=== PATIENT | female | born 1985 | race Two or more races ===

== ENCOUNTER 2017-11-13 21:30 | Inpatient (IN) | payer BC, MEDICAID ==
[2017-11-13] MEDS ORDERED: Ondansetron 4 MG/2 ML SDV IVPUSH ONE (22:19)
[2017-11-13] MEDS ORDERED: Sodium Chloride 0.9% 1,000 ML IV SCH (22:30)
[2017-11-13] MEDS ORDERED: HYDROmorphone 1 MG/ML Syringe IVPUSH ONE (23:24)
--- NOTE | 2017-11-14 00:23 | EDM.PDOC ---
ED HPI GENERAL MEDICAL PROBLEM - General Chief Complaint: Gastrointestinal Problem Stated Complaint: VOMITING/ABD PAIN Time Seen by Provider: 11/13/17 21:45 Source of Information: Reports: Patient History Limitations: Reports: No Limitations - History of Present Illness INITIAL COMMENTS - FREE TEXT/NARRATIVE: Abdominal pain this is a 32-year-old female presents emergency room with her friend, reports sudden onset of intense pain and nausea in her epigastric and mid quadrant of abdomen starting at 2 PM today. This occurred after she ate a mini topical bowl which contain rice, beans, chicken, cheese and salsa. Took 2 Zofran 4 mg ODT but vomited them up immediately after taking them. History of gastric bypass on 03/10/2014, reports no complications since gastric bypass. History of ulcer; takes Prilosec and carafate Onset: Sudden Onset Date: 11/13/17 Onset Time: 14:00 Duration: Constant, Getting Worse Location: Reports: Abdomen Quality: Reports: Sharp, Stabbing, Throbbing Severity: Severe Improves with: Reports: None Worsens with: Reports: Eating Associated Symptoms: Reports: Loss of Appetite, Nausea/Vomiting Treatments CORN HUSK BALER: Reports: Other (see below) Other Treatments CORN HUSK BALER: none Mid Abdomen Pain Score (Numeric/FACES): 8 - Related Data Allergies Allergy/AdvReac Type Severity Reaction Status Date / Time walnut Allergy Severe Anaphylactic Verified 11/13/17 22:10 Shock azithromycin Allergy Rash Verified 11/13/17 22:10 iodine Allergy Hives Verified 11/13/17 22:10 morphine AdvReac Headache Verified 11/13/17 22:10 Home Meds: Home Meds Levothyroxine Sodium [Synthroid] 88 mcg PO DAILY 03/07/14 [History] Ascorbic Acid [Vitamin C] 500 mg PO DAILY 09/18/15 [History] Calcium Citrate 500 mg PO DAILY 09/18/15 [History] Cholecalciferol (Vitamin D3) [Vitamin D3] 2,000 units PO DAILY 09/18/15 [History ] Cranberry Extract [Cranberry] 1,000 mg PO .ALICE OTHER DAY 09/18/15 [History] Cyanocobalamin (Vitamin B-12) [Vitamin B-12] 1,000 mcg IM .QOW 09/18/15 [History ] Cyanocobalamin (Vitamin B-12) [Vitamin B-12] 5,000 mcg SL BID 09/18/15 [History] Ferrous Fumarate [Ferrocite] 324 mg PO DAILY 09/18/15 [History] Folic Acid 800 mcg PO DAILY 09/18/15 [History] Multivitamin [Flintstones] 1 tab PO BID 09/18/15 [History] Omeprazole [Prilosec] 40 mg PO DAILY PRN 09/18/15 [History] Papaya [Papaya Enzyme] 1 tab PO DAILY PRN 09/18/15 [History] Sennosides [Senna] 8.6 mg PO BEDTIME PRN 09/18/15 [History] Thiamine [Vitamin B-1] 100 mg PO DAILY 09/18/15 [History] Pantoprazole Sodium [Protonix] 40 mg PO DAILY 09/21/15 [History] buPROPion HCl [Bupropion HCl Sr] 100 mg PO BID 07/03/16 [History] Acetaminophen/HYDROcodone [[place] 325-5 MG] 1 - 2 tab PO Q4H PRN #50 tablet 07/06 [Rx] Past Medical History Gastrointestinal History: Reports: GERD Other Gastrointestinal History: Ulcerative cholitis Genitourinary History: Reports: UTI, Recurrent ASSOCIATE FINANCIAL REPRESENTATIVE History: Reports: Polycystic Ovaries, , Spontaneous Musculoskeletal History: Reports: Back Pain, Chronic, Other (See Below) Other Musculoskeletal History: slipped disc Neurological History: Reports: Migraines Psychiatric History: Reports: Anxiety, Depression, Panic Attack Endocrine/Metabolic History: Reports: Hypothyroidism Hematologic History: Reports: B12 Deficiency, Folic Acid Immunologic History: Reports: None Oncologic (Cancer) History: Reports: Cervix, Other (See Below) Other Oncologic History: Leep Dermatologic History: Reports: None - Infectious Disease History Infectious Disease History: Reports: Chicken Pox - Past Surgical History Head Surgeries/Procedures: Reports: None GI Surgical History: Reports: Bariatric Procedure, Cholecystectomy Neurological Surgical History: Reports: None Musculoskeletal Surgical History: Reports: None Social & Family History - Family History HEENT: Reports: None Cardiac: Reports: Heart Murmur Respiratory: Reports: Asthma GI: Reports: Irritable Bowel Syndrome, Other (See Below) Other GI Family History: ulcerative colitis : Reports: Other (See Below) Other Family History: uterine cysts OBGYN: Reports: Fibroids Musculoskeletal: Reports: Arthritis, Fibromyalgia Neurological: Reports: None Psychiatric: Reports: Psych Hospitalization(s), Psychosis Endocrine/Metabolic: Reports: Diabetes, type II Hematologic: Reports: None Immunologic: Reports: None Dermatologic: Reports: None Oncologic: Reports: None - Tobacco Use Smoking Status *Q: Never Smoker Years of Tobacco use: 10 Packs/Tins Daily: 0 Used Tobacco, but Quit: Yes Month/Year Tobacco Last Used: 03/16/16 Second Hand Smoke Exposure: No - Caffeine Use Caffeine Use: Reports: Coffee, Tea - Alcohol Use Days Per Week of Alcohol Use: 2 Number of Drinks Per Day: 1 Total Drinks Per Week: 2 - Recreational Drug Use Recreational Drug Use: No Drug Use in Last 12 Months: No Recreational Drug Type: Reports: Methamphetamine - Living Situation & Occupation Living situation: Reports: Single (Has 3 children lives in [facility] ) ED ROS GENERAL - Review of Systems Review Of Systems: See Below Constitutional: Reports: Malaise, Decreased Appetite HEENT: Reports: No Symptoms Respiratory: Reports: No Symptoms Cardiovascular: Reports: No Symptoms Endocrine: Reports: No Symptoms GI/Abdominal: Reports: Abdominal Pain, Nausea, Vomiting, Other (History of gastric bypass 2013) : Reports: No Symptoms Musculoskeletal: Reports: Back Pain (Pain between shoulders and upper back) Skin: Reports: No Symptoms Neurological: Reports: No Symptoms Psychiatric: Reports: No Symptoms Hematologic/Lymphatic: Reports: No Symptoms Immunologic: Reports: No Symptoms ED EXAM, GI/ABD - Physical Exam Exam: See Below Exam Limited By: No Limitations General Appearance: Moderate Distress (Laying on her side not moving, tearful with abdominal exam.) Eyes: Bilateral: Normal Appearance (Dark circles under eyes) Ears: Normal External Exam, Normal Canal, Hearing Grossly Normal, Normal TMs Nose: Normal Inspection, Normal Mucosa, No Blood Throat/Mouth: Normal Inspection, Normal Lips, Normal Teeth, Normal Gums, Normal Oropharynx, Normal Voice, No Airway Compromise Head: Atraumatic, Normocephalic Neck: Normal Inspection, Supple, Non-Tender, Full Range of Motion Respiratory/Chest: No Respiratory Distress, Lungs Clear, Normal Breath Sounds, No Accessory Muscle Use, Chest Non-Tender Cardiovascular: Regular Rate, Rhythm, No Murmur GI/Abdominal Exam: Tender (Very tender to light palpation in epigastric and mid abdominal quadrant, tearful), Abnormal Bowel Sounds (Hypoactive) (Female) Exam: Deferred Rectal (Female) Exam: Deferred Back Exam: Normal Inspection, Full Range of Motion, NT Extremities: Normal Inspection, Normal Range of Motion, Non-Tender, Normal Capillary Refill, No Pedal Edema Neurological: No Motor/Sensory Deficits Psychiatric: Tearful Skin Exam: Warm, Dry, Intact, Normal Color, No Rash Lymphatic: No Adenopathy Course - Vital Signs Last Recorded V/S: Last Vital Signs Temp 37.4 C 11/13/17 22:04 Pulse 78 11/13/17 22:04 Resp 18 11/13/17 22:04 BP 135/72 11/13/17 22:04 Pulse Ox 96 11/13/17 22:04 - Orders/Labs/Meds Orders: Active Orders 24 hr Category Date Time Status Patient Status Manage Transfer [TRANSFER] Routine ADT 11/13/17 23:49 Active Abdomen Pelvis wo Cont [CT] Stat Exams 11/13/17 22:21 Taken UA W/MICROSCOPIC [URIN] Urgent Lab 11/13/17 22:20 Ordered Sodium Chloride 0.9% [Normal Saline] 1,000 ml Med 11/13/17 22:30 Active IV ASDIRECTED Resuscitation Status Routine Resus Stat 11/13/17 23:50 Ordered Medication Orders Sodium Chloride (Normal Saline) 1,000 mls @ 300 mls/hr IV ASDIRECTED JULITO Last Admin: 11/13/17 22:39 Dose: 300 mls/hr Labs: Laboratory Tests 11/13/17 11/13/17 Range/Units 22:20 22:20 WBC 9.8 (4.5-11.0) K/uL RBC 4.44 (3.30-5.50) M/uL Hgb 14.1 D (12.0-15.0) g/dL Hct 41.6 (36.0-48.0) % MCV 94 (80-98) fL MCH 32 H (27-31) pg MCHC 34 (32-36) % Plt Count 321 (150-400) K/uL Neut % (Auto) 88 H (36-66) % Lymph % (Auto) 8 L (24-44) % [place] % (Auto) 3 (2-6) % Eos % (Auto) 1 L (2-4) % Baso % (Auto) 0 (0-1) % Sodium 143 (140-148) mmol/L Potassium 4.0 (3.6-5.2) mmol/L Chloride 106 (100-108) mmol/L Carbon Dioxide 26 (21-32) mmol/L Anion Gap 11.0 (5.0-14.0) mmol/L BUN 8 D (7-18) mg/dL Creatinine 0.7 (0.6-1.0) mg/dL Est Cr Clr Drug Dosing 89.56 mL/min Estimated GFR (MDRD) > 60 (>60) Glucose 134 H (74-106) mg/dL Calcium 9.2 D (8.5-10.1) mg/dL Total Bilirubin 0.4 (0.2-1.0) mg/dL AST 23 (15-37) U/L ALT 29 (12-78) U/L Alkaline Phosphatase 62 (46-116) U/L Total Protein 7.4 (6.4-8.2) g/dL Albumin 4.2 (3.4-5.0) g/dL Globulin 3.2 (2.3-3.5) g/dL Albumin/Globulin Ratio 1.3 (1.2-2.2) Amylase 47 (25-115) U/L Lipase 103 (73-393) U/L Meds: Medications Generic Name Dose Route Start Last Admin Trade Name Freq PRN Reason Stop Dose Admin Sodium Chloride 1,000 mls @ 300 mls/hr 11/13/17 22:30 11/13/17 22:39 Normal Saline IV 300 mls/hr ASDIRECTED JULITO Administration Discontinued Medications Generic Name Dose Route Start Last Admin Trade Name Freq PRN Reason Stop Dose Admin Hydromorphone HCl 1 mg 11/13/17 23:24 11/14/17 00:00 Dilaudid IVPUSH 11/13/17 23:25 1 mg ONETIME ONE Administration Ondansetron HCl 4 mg 11/13/17 22:19 11/13/17 22:41 Zofran IVPUSH 11/13/17 22:20 4 mg ONETIME ONE Administration - Re-Assessments/Exams Free Text/Narrative Re-Assessment/Exam: 11/13/2017 While in the emergency room given IV fluids, Zofran 4 mg IV, and Dilaudid 1 mg IV Labs: WBC 9.8, hemoglobin 14 1, heart hematocrit 32, platelets 321, seg 88 and 0 lymphs, bands 8, chemistry unremarkable, LFTs normal, lipase 103 Imaging : CT scan abdomen pelvis without contrast: Impression suspected small bowel obstruction with alimentary limb.. No convincing evidence for internal hernia. Adhesive disease or anastomotic stricture are possible causes for obstruction. 6 x 4 cm right adnexal cyst without evidence of rupture. This is almost certain to be benign. However because of his large size follow-up ultrasound evaluation is recommended. Discussed the above findings with Dr. Rudolph Crump, surgeon, will admit to hospital for further care and evaluation. Reviewed recommendations with patient and her friend agree with plan of care Departure - Departure Time of Disposition: 00:33 Disposition: Admitted As Inpatient 64 Condition: Good Clinical Impression: Small bowel obstruction - Discharge Information Referrals: Madan Castellano MD [Primary Care Provider] - - Problem List & Annotations (1) Small bowel obstruction SNOMED Code(s): 918708524 Code(s): K56.609 - UNSP INTESTNL OBST, UNSP TO PARTIAL VERSUS COMPLETE OBST Status: Acute Priority: High Current Visit: Yes - Problem List Review Problem List Initiated/Reviewed/Updated: Yes - My Orders Last 24 Hours: My Active Orders 11/13/17 22:20 UA W/MICROSCOPIC [URIN] Urgent 11/13/17 22:21 Abdomen Pelvis wo Cont [CT] Stat 11/13/17 22:30 Sodium Chloride 0.9% [Normal Saline] 1,000 ml IV ASDIRECTED 11/13/17 23:49 Patient Status Manage Transfer [TRANSFER] Routine 11/13/17 23:50 Resuscitation Status Routine - Assessment/Plan Last 24 Hours: My Active Orders 11/13/17 22:20 UA W/MICROSCOPIC [URIN] Urgent 11/13/17 22:21 Abdomen Pelvis wo Cont [CT] Stat 11/13/17 22:30 Sodium Chloride 0.9% [Normal Saline] 1,000 ml IV ASDIRECTED 11/13/17 23:49 Patient Status Manage Transfer [TRANSFER] Routine 11/13/17 23:50 Resuscitation Status Routine Plan: Admit to [facility]
--- NOTE | 2017-11-14 00:37 | PCM.HP ---
H&P History of Present Illness - General Date of Service: 11/13/17 Admit Problem/Dx: Admission Diagnosis/Problem Admission Diagnosis/Problem Small bowel obstruction Source of Information: Patient History Limitations: Reports: No Limitations - History of Present Illness Initial Comments - Free Text/Narative: Abdominal pain this is a 32-year-old female presents emergency room with her friend, reports sudden onset of intense pain and nausea in her epigastric and mid quadrant of abdomen starting at 2 PM today. This occurred after she ate a mini topical bowl which contain rice, beans, chicken, cheese and salsa. Took 2 Zofran 4 mg ODT but vomited them up immediately after taking them. History of gastric bypass on 03/10/2014, reports no complications since gastric bypass. History of ulcer; takes Prilosec and carafate Mid Abdomen Pain Score (Numeric/FACES): 8 - Related Data Allergies/Adverse Reactions: Allergies Allergy/AdvReac Type Severity Reaction Status Date / Time walnut Allergy Severe Anaphylactic Verified 11/13/17 22:10 Shock azithromycin Allergy Rash Verified 11/13/17 22:10 iodine Allergy Hives Verified 11/13/17 22:10 morphine AdvReac Headache Verified 11/13/17 22:10 Home Medications: Home Meds Levothyroxine Sodium [Synthroid] 88 mcg PO DAILY 03/07/14 [History] Ascorbic Acid [Vitamin C] 500 mg PO DAILY 09/18/15 [History] Calcium Citrate 500 mg PO DAILY 09/18/15 [History] Cholecalciferol (Vitamin D3) [Vitamin D3] 2,000 units PO DAILY 09/18/15 [History ] Cranberry Extract [Cranberry] 1,000 mg PO .ALICE OTHER DAY 09/18/15 [History] Cyanocobalamin (Vitamin B-12) [Vitamin B-12] 1,000 mcg IM .QOW 09/18/15 [History ] Cyanocobalamin (Vitamin B-12) [Vitamin B-12] 5,000 mcg SL BID 09/18/15 [History] Ferrous Fumarate [Ferrocite] 324 mg PO DAILY 09/18/15 [History] Folic Acid 800 mcg PO DAILY 09/18/15 [History] Multivitamin [Flintstones] 1 tab PO BID 09/18/15 [History] Omeprazole [Prilosec] 40 mg PO DAILY PRN 09/18/15 [History] Papaya [Papaya Enzyme] 1 tab PO DAILY PRN 09/18/15 [History] Sennosides [Senna] 8.6 mg PO BEDTIME PRN 09/18/15 [History] Thiamine [Vitamin B-1] 100 mg PO DAILY 09/18/15 [History] Pantoprazole Sodium [Protonix] 40 mg PO DAILY 09/21/15 [History] buPROPion HCl [Bupropion HCl Sr] 100 mg PO BID 07/03/16 [History] Acetaminophen/HYDROcodone [[place] 325-5 MG] 1 - 2 tab PO Q4H PRN #50 tablet 07/06 [Rx] Past Medical History Gastrointestinal History: Reports: GERD Other Gastrointestinal History: Ulcerative cholitis Genitourinary History: Reports: UTI, Recurrent 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: Polycystic Ovaries, , Spontaneous Musculoskeletal History: Reports: Back Pain, Chronic, Other (See Below) Other Musculoskeletal History: slipped disc Neurological History: Reports: Migraines Psychiatric History: Reports: Anxiety, Depression, Panic Attack Endocrine/Metabolic History: Reports: Hypothyroidism Hematologic History: Reports: B12 Deficiency, Folic Acid Immunologic History: Reports: None Oncologic (Cancer) History: Reports: Cervix, Other (See Below) Other Oncologic History: Leep Dermatologic History: Reports: None - Infectious Disease History Infectious Disease History: Reports: Chicken Pox - Past Surgical History Head Surgeries/Procedures: Reports: None GI Surgical History: Reports: Bariatric Procedure, Cholecystectomy Neurological Surgical History: Reports: None Musculoskeletal Surgical History: Reports: None Social & Family History - Family History HEENT: Reports: None Cardiac: Reports: Heart Murmur Respiratory: Reports: Asthma GI: Reports: Irritable Bowel Syndrome, Other (See Below) Other GI Family History: ulcerative colitis : Reports: Other (See Below) Other Family History: uterine cysts OBGYN: Reports: Fibroids Musculoskeletal: Reports: Arthritis, Fibromyalgia Neurological: Reports: None Psychiatric: Reports: Psych Hospitalization(s), Psychosis Endocrine/Metabolic: Reports: Diabetes, type II Hematologic: Reports: None Immunologic: Reports: None Dermatologic: Reports: None Oncologic: Reports: None - Tobacco Use Smoking Status *Q: Never Smoker Years of Tobacco use: 10 Packs/Tins Daily: 0 Used Tobacco, but Quit: Yes Month/Year Tobacco Last Used: 03/16/16 Second Hand Smoke Exposure: No - Caffeine Use Caffeine Use: Reports: Coffee, Tea - Alcohol Use Days Per Week of Alcohol Use: 2 Number of Drinks Per Day: 1 Total Drinks Per Week: 2 - Recreational Drug Use Recreational Drug Use: No Drug Use in Last 12 Months: No Recreational Drug Type: Reports: Methamphetamine - Living Situation & Occupation Living situation: Reports: Single (Has 3 children lives in [facility] ) H&P Review of Systems - Review of Systems: Review Of Systems: See Below General: Reports: Decreased Appetite, Other (Nausea vomiting and abdominal pain) HEENT: Reports: No Symptoms Pulmonary: Reports: No Symptoms Cardiovascular: Reports: No Symptoms Gastrointestinal: Reports: Abdominal Pain, Nausea, Vomiting Genitourinary: Reports: No Symptoms Musculoskeletal: Reports: Back Pain Skin: Reports: No Symptoms Psychiatric: Reports: No Symptoms Neurological: Reports: No Symptoms Hematologic/Lymphatic: Reports: No Symptoms Immunologic: Reports: No Symptoms Exam - Exam Exam: See Below - Vital Signs Vital Signs: Last Vital Signs Temp 37.4 C 11/13/17 22:04 Pulse 78 11/13/17 22:04 Resp 18 11/13/17 22:04 BP 135/72 11/13/17 22:04 Pulse Ox 96 11/13/17 22:04 Weight: 62.596 kg - Exam General: Alert, Oriented, Mild Distress (Pain control with Dilaudid and Zofran) HEENT: PERRLA, Conjunctiva Clear, EOMI, Mucosa Moist & [place], Nares Patent, Normal Nasal Septum, Posterior Pharynx Clear, Pupils Equal, Pupils Reactive, TMs Clear Neck: Supple, Trachea Midline Lungs: Clear to Auscultation, Normal Respiratory Effort Cardiovascular: Regular Rate, Regular Rhythm, Normal S1, Normal S2 GI/Abdominal Exam: Tender (Tenderness noted to light palpation epigastric and mid abdominal area.), Abnormal Bowel Sounds (Hypoactive to absent bowel sounds noted) (Female) Exam: Deferred Rectal (Female) Exam: Deferred Back Exam: Normal Inspection, Full Range of Motion Extremities: Normal Inspection, Normal Range of Motion, No Pedal Edema, Normal Capillary Refill Skin: Warm, Dry, Intact Neurological: Reflexes Equal Bilateral, Strength Equal Bilateral Neuro Extensive - Mental Status: Alert, Oriented x3, Normal Mood/Affect, Normal Cognition Neuro Extensive - Motor, Sensory, Reflexes: CN II-XII Intact, Normal Gait Psychiatric: Alert, Normal Affect, Normal Mood, Other (Tearful) - Patient Data Lab Results Last 24 hrs: Laboratory Results - last 24 hr 11/13/17 11/13/17 Range/Units 22:20 22:20 WBC 9.8 (4.5-11.0) K/uL RBC 4.44 (3.30-5.50) M/uL Hgb 14.1 D (12.0-15.0) g/dL Hct 41.6 (36.0-48.0) % MCV 94 (80-98) fL MCH 32 H (27-31) pg MCHC 34 (32-36) % Plt Count 321 (150-400) K/uL Neut % (Auto) 88 H (36-66) % Lymph % (Auto) 8 L (24-44) % [place] % (Auto) 3 (2-6) % Eos % (Auto) 1 L (2-4) % Baso % (Auto) 0 (0-1) % Sodium 143 (140-148) mmol/L Potassium 4.0 (3.6-5.2) mmol/L Chloride 106 (100-108) mmol/L Carbon Dioxide 26 (21-32) mmol/L Anion Gap 11.0 (5.0-14.0) mmol/L BUN 8 D (7-18) mg/dL Creatinine 0.7 (0.6-1.0) mg/dL Est Cr Clr Drug Dosing 89.56 mL/min Estimated GFR (MDRD) > 60 (>60) Glucose 134 H (74-106) mg/dL Calcium 9.2 D (8.5-10.1) mg/dL Total Bilirubin 0.4 (0.2-1.0) mg/dL AST 23 (15-37) U/L ALT 29 (12-78) U/L Alkaline Phosphatase 62 (46-116) U/L Total Protein 7.4 (6.4-8.2) g/dL Albumin 4.2 (3.4-5.0) g/dL Globulin 3.2 (2.3-3.5) g/dL Albumin/Globulin Ratio 1.3 (1.2-2.2) Amylase 47 (25-115) U/L Lipase 103 (73-393) U/L Result Diagrams: 11/13/17 22:20 11/13/17 22:20 - Problem List (1) Small bowel obstruction SNOMED Code(s): 364855595 ICD Code: K56.609 - UNSP INTESTNL OBST, UNSP TO PARTIAL VERSUS COMPLETE OBST Status: Acute Priority: High Current Visit: Yes (2) Ovarian cyst SNOMED Code(s): 73216863 ICD Code: N83.209 - UNSPECIFIED OVARIAN CYST, UNSPECIFIED SIDE Status: Acute Current Visit: Yes Qualifiers: Laterality: right Qualified Code(s): N83.201 - Unspecified ovarian cyst, right side Problem List Initiated/Reviewed/Updated: Yes Orders Last 24hrs: Active Orders 24 hr Category Date Time Status Patient Status Manage Transfer [TRANSFER] Routine ADT 11/13/17 23:49 Active Abdomen Pelvis wo Cont [CT] Stat Exams 11/13/17 22:21 Taken HCG QUALITATIVE,URINE [URCHEM] Stat Lab 11/14/17 00:28 Ordered UA W/MICROSCOPIC [URIN] Urgent Lab 11/13/17 22:20 Ordered Sodium Chloride 0.9% [Normal Saline] 1,000 ml Med 11/13/17 22:30 Active IV ASDIRECTED Resuscitation Status Routine Resus Stat 11/13/17 23:50 Ordered Medication Orders Sodium Chloride (Normal Saline) 1,000 mls @ 300 mls/hr IV ASDIRECTED JULITO Last Admin: 11/13/17 22:39 Dose: 300 mls/hr Assessment/Plan Comment:: Assessment: Abdominal pain this is a 32-year-old female presents emergency room with her friend, reports sudden onset of intense pain and nausea in her epigastric and mid quadrant of abdomen starting at 2 PM today. This occurred after she ate a mini topical bowl which contain rice, beans, chicken, cheese and salsa. Took 2 Zofran 4 mg ODT but vomited them up immediately after taking them. History of gastric bypass on 03/10/2014, reports no complications since gastric bypass. History of ulcer; takes Prilosec and carafate While in the emergency room given IV fluids, Zofran 4 mg IV, and Dilaudid 1 mg IV Labs: WBC 9.8, hemoglobin 14 1, heart hematocrit 32, platelets 321, seg 88 and 0 lymphs, bands 8, chemistry unremarkable, LFTs normal, lipase 103 Imaging : CT scan abdomen pelvis without contrast: Impression: suspected small bowel obstruction with alimentary limb.. No convincing evidence for internal hernia. Adhesive disease or anastomotic stricture are possible causes for obstruction. 6 x 4 cm right adnexal cyst without evidence of rupture. This is almost certain to be benign. However because of his large size follow-up ultrasound evaluation is recommended. Discussed the above findings with Dr. Rudolph Crump, surgeon, will admit to hospital for further care and evaluation. Reviewed recommendations with patient and her friend agree with plan of care Small bowel obstruction -Clear liquids till 2 AM then nothing by mouth -IV hydration, normal saline at 125 per hour -HR DIRECTOR Dilaudid pump for pain control -Referral for surgery -Dr. Crump surgeon consulted 6 x 4 cm right adnexal cyst -Advise patient to follow-up with her primary care provider for repeat ultrasound. -Stick immediate attention for increased pain, fever, chills, or any concerns. MAINTENANCE ISSUES -DVT prophylaxis; SCD -GI prophylaxis; IV Protonix 40 mg every 24 hours -Webber catheter; not required -Nutrition; clear liquids till 2 AM then nothing by mouth -Nicotine dependence; not required -Surgery consult CODE STATUS- Full code ADMISSION STATUS-patient will be admitted to inpatient status, expect at least a 2 night hospital stay for evaluation and management of problems as outlined above. At the time of this admission I do not reasonably expected evaluation and management of this problem will require more than a 96 hour hospital stay. DISPOSITION-anticipate discharge to home after the hospital stay. PRIMARY CARE PROVIDER-Dr. Madan Abraham
[2017-11-14] MEDS ORDERED: Albuterol 0.083% 2.5 MG/3 ML Neb Soln NEB PRN (01:05)
[2017-11-14] MEDS ORDERED: HYDROmorphone/Normal Saline 15 MG/30 ML PCA IV PRN (01:05)
[2017-11-14] MEDS ORDERED: LORazepam 2 MG/ML SDV IV PRN ×2 (01:05→14:32)
[2017-11-14] MEDS ORDERED: Naloxone 0.4 MG/ML SDV IVPUSH PRN (01:05)
[2017-11-14] MEDS: Lactated Ringers 1,000 ML IV SCH ×2 (01:26→09:06)
[2017-11-14] MEDS ORDERED: Pantoprazole 40 MG Vial IVPUSH SCH (01:30)
[2017-11-14] MEDS: Levothyroxine 88 MCG Tab PO SCH (07:42)
--- NOTE | 2017-11-14 07:46 | PCM.CONS ---
<Sulema Hebert J - Last Filed: 11/15/17 06:23> H&P History of Present Illness - General Admit Problem/Dx: Admission Diagnosis/Problem Admission Diagnosis/Problem Small bowel obstruction - Related Data Allergies/Adverse Reactions: Allergies Allergy/AdvReac Type Severity Reaction Status Date / Time walnut Allergy Severe Anaphylactic Verified 11/13/17 22:10 Shock azithromycin Allergy Rash Verified 11/13/17 22:10 iodine Allergy Hives Verified 11/13/17 22:10 morphine AdvReac Headache Verified 11/13/17 22:10 Home Medications: Home Meds Levothyroxine Sodium [Synthroid] 88 mcg PO DAILY 03/07/14 [History] Ascorbic Acid [Vitamin C] 500 mg PO DAILY 09/18/15 [History] Calcium Citrate 500 mg PO DAILY 09/18/15 [History] Cholecalciferol (Vitamin D3) [Vitamin D3] 2,000 units PO DAILY 09/18/15 [History ] Cranberry Extract [Cranberry] 1,000 mg PO .ALICE OTHER DAY 09/18/15 [History] Cyanocobalamin (Vitamin B-12) [Vitamin B-12] 1,000 mcg IM .QOW 09/18/15 [History ] Cyanocobalamin (Vitamin B-12) [Vitamin B-12] 5,000 mcg SL BID 09/18/15 [History] Ferrous Fumarate [Ferrocite] 324 mg PO DAILY 09/18/15 [History] Folic Acid 800 mcg PO DAILY 09/18/15 [History] Multivitamin [Flintstones] 1 tab PO BID 09/18/15 [History] Omeprazole [Prilosec] 40 mg PO DAILY PRN 09/18/15 [History] Papaya [Papaya Enzyme] 1 tab PO DAILY PRN 09/18/15 [History] Sennosides [Senna] 8.6 mg PO BEDTIME PRN 09/18/15 [History] Thiamine [Vitamin B-1] 100 mg PO DAILY 09/18/15 [History] Pantoprazole Sodium [Protonix] 40 mg PO DAILY 09/21/15 [History] buPROPion HCl [Bupropion HCl Sr] 100 mg PO BID 07/03/16 [History] Acetaminophen/HYDROcodone [[place] 325-5 MG] 1 - 2 tab PO Q4H PRN #50 tablet 07/06 [Rx] Exam - Exam Exam: See Below - Vital Signs Vital Signs: Last Vital Signs Temp 98.4 F 11/14/17 13:40 Pulse 75 11/14/17 13:40 Resp 14 11/14/17 13:40 BP 114/66 11/14/17 13:40 Pulse Ox 100 11/14/17 13:40 - Patient Data Lab Results Last 24 hrs: Laboratory Results - last 24 hr 11/13/17 11/13/17 11/14/17 Range/Units 22:20 22:20 00:28 WBC 9.8 (4.5-11.0) K/uL RBC 4.44 (3.30-5.50) M/uL Hgb 14.1 D (12.0-15.0) g/dL Hct 41.6 (36.0-48.0) % MCV 94 (80-98) fL MCH 32 H (27-31) pg MCHC 34 (32-36) % Plt Count 321 (150-400) K/uL Neut % (Auto) 88 H (36-66) % Lymph % (Auto) 8 L (24-44) % [place] % (Auto) 3 (2-6) % Eos % (Auto) 1 L (2-4) % Baso % (Auto) 0 (0-1) % Sodium 143 (140-148) mmol/L Potassium 4.0 (3.6-5.2) mmol/L Chloride 106 (100-108) mmol/L Carbon Dioxide 26 (21-32) mmol/L Anion Gap 11.0 (5.0-14.0) mmol/L BUN 8 D (7-18) mg/dL Creatinine 0.7 (0.6-1.0) mg/dL Est Cr Clr Drug Dosing 89.56 mL/min Estimated GFR (MDRD) > 60 (>60) Glucose 134 H (74-106) mg/dL Calcium 9.2 D (8.5-10.1) mg/dL Ferritin (8-388) ng/ml Total Bilirubin 0.4 (0.2-1.0) mg/dL AST 23 (15-37) U/L ALT 29 (12-78) U/L Alkaline Phosphatase 62 (46-116) U/L Total Protein 7.4 (6.4-8.2) g/dL Albumin 4.2 (3.4-5.0) g/dL Globulin 3.2 (2.3-3.5) g/dL Albumin/Globulin Ratio 1.3 (1.2-2.2) Amylase 47 (25-115) U/L Lipase 103 (73-393) U/L Vitamin B12 (193-986) pg/ml Vitamin D 25-Hydroxy (30-100) ng/mL Folate (8.6-58.9) ng/ml Urine Color Urine Appearance Urine pH (4.5-8.0) Ur Specific Mason (1.008-1.030) Urine Protein (NEGATIVE) mg/dL Urine Glucose (UA) (NEGATIVE) mg/dL Urine Ketones (NEGATIVE) mg/dL Urine Occult Blood (NEGATIVE) Urine Nitrite (NEGATIVE) Urine Bilirubin (NEGATIVE) Urine Urobilinogen (NORMAL) mg/dL Ur Leukocyte Esterase (NEGATIVE) Urine RBC (0-5) Urine WBC (0-5) Ur Epithelial Cells Amorphous Sediment Urine Bacteria Urine Mucus Urine HCG, Qual Negative 11/14/17 11/14/17 11/14/17 Range/Units 01:20 05:00 05:00 WBC 8.9 (4.5-11.0) K/uL RBC 4.00 (3.30-5.50) M/uL Hgb 12.9 (12.0-15.0) g/dL Hct 38.1 (36.0-48.0) % MCV 95 (80-98) fL MCH 32 H (27-31) pg MCHC 34 (32-36) % Plt Count 270 (150-400) K/uL Neut % (Auto) 68 H (36-66) % Lymph % (Auto) 22 L (24-44) % [place] % (Auto) 8 H (2-6) % Eos % (Auto) 2 (2-4) % Baso % (Auto) 0 (0-1) % Sodium 144 (140-148) mmol/L Potassium 4.0 (3.6-5.2) mmol/L Chloride 109 H (100-108) mmol/L Carbon Dioxide 27 (21-32) mmol/L Anion Gap 12.0 (5.0-14.0) mmol/L BUN 11 (7-18) mg/dL Creatinine 0.6 (0.6-1.0) mg/dL Est Cr Clr Drug Dosing 104.49 mL/min Estimated GFR (MDRD) > 60 (>60) Glucose 89 (74-106) mg/dL Calcium 8.2 L (8.5-10.1) mg/dL Ferritin (8-388) ng/ml Total Bilirubin (0.2-1.0) mg/dL AST (15-37) U/L ALT (12-78) U/L Alkaline Phosphatase (46-116) U/L Total Protein (6.4-8.2) g/dL Albumin (3.4-5.0) g/dL Globulin (2.3-3.5) g/dL Albumin/Globulin Ratio (1.2-2.2) Amylase (25-115) U/L Lipase (73-393) U/L Vitamin B12 (193-986) pg/ml Vitamin D 25-Hydroxy (30-100) ng/mL Folate (8.6-58.9) ng/ml Urine Color Yellow Urine Appearance Clear Urine pH 7.0 (4.5-8.0) Ur Specific Mason 1.010 (1.008-1.030) Urine Protein Negative (NEGATIVE) mg/dL Urine Glucose (UA) Normal (NEGATIVE) mg/dL Urine Ketones Negative (NEGATIVE) mg/dL Urine Occult Blood Negative (NEGATIVE) Urine Nitrite Negative (NEGATIVE) Urine Bilirubin Negative (NEGATIVE) Urine Urobilinogen Normal (NORMAL) mg/dL Ur Leukocyte Esterase Negative (NEGATIVE) Urine RBC 0-5 (0-5) Urine WBC 0-5 (0-5) Ur Epithelial Cells Few Amorphous Sediment Not seen Urine Bacteria Not seen Urine Mucus Not seen Urine HCG, Qual 11/14/17 11/14/17 11/14/17 Range/Units 08:15 08:15 08:15 WBC (4.5-11.0) K/uL RBC (3.30-5.50) M/uL Hgb (12.0-15.0) g/dL Hct (36.0-48.0) % MCV (80-98) fL MCH (27-31) pg MCHC (32-36) % Plt Count (150-400) K/uL Neut % (Auto) (36-66) % Lymph % (Auto) (24-44) % [place] % (Auto) (2-6) % Eos % (Auto) (2-4) % Baso % (Auto) (0-1) % Sodium 144 (140-148) mmol/L Potassium 4.0 (3.6-5.2) mmol/L Chloride 108 (100-108) mmol/L Carbon Dioxide 28 (21-32) mmol/L Anion Gap 8.4 (5.0-14.0) mmol/L BUN 12 (7-18) mg/dL Creatinine 0.6 (0.6-1.0) mg/dL Est Cr Clr Drug Dosing 104.49 mL/min Estimated GFR (MDRD) > 60 (>60) Glucose 91 (74-106) mg/dL Calcium 8.2 L (8.5-10.1) mg/dL Ferritin 29 (8-388) ng/ml Total Bilirubin 0.3 (0.2-1.0) mg/dL AST 19 (15-37) U/L ALT 29 (12-78) U/L Alkaline Phosphatase 53 (46-116) U/L Total Protein 6.2 L (6.4-8.2) g/dL Albumin 3.5 (3.4-5.0) g/dL Globulin 2.7 (2.3-3.5) g/dL Albumin/Globulin Ratio 1.3 (1.2-2.2) Amylase (25-115) U/L Lipase (73-393) U/L Vitamin B12 286 (193-986) pg/ml Vitamin D 25-Hydroxy 52.2 (30-100) ng/mL Folate 18.2 (8.6-58.9) ng/ml Urine Color Urine Appearance Urine pH (4.5-8.0) Ur Specific Mason (1.008-1.030) Urine Protein (NEGATIVE) mg/dL Urine Glucose (UA) (NEGATIVE) mg/dL Urine Ketones (NEGATIVE) mg/dL Urine Occult Blood (NEGATIVE) Urine Nitrite (NEGATIVE) Urine Bilirubin (NEGATIVE) Urine Urobilinogen (NORMAL) mg/dL Ur Leukocyte Esterase (NEGATIVE) Urine RBC (0-5) Urine WBC (0-5) Ur Epithelial Cells Amorphous Sediment Urine Bacteria Urine Mucus Urine HCG, Qual Result Diagrams: 11/14/17 05:00 11/14/17 08:15 Consult PN Assessment/Plan Procedures: Procedures BLOOD TYPING SEROLOGIC ABO (01/30/14) BLOOD TYPING SEROLOGIC RH(D) (01/30/14) CULTURE SCREEN ONLY (09/21/15) EGD BIOPSY SINGLE/MULTIPLE (09/21/15) EMERGENCY DEPT VISIT (03/14/14) EMERGENCY DEPT VISIT (03/14/14) RBC ANTIBODY SCREEN (01/30/14) THER/PROPH/DIAG INJ SC/IM (03/14/14) (1) Small bowel obstruction SNOMED Code(s): 693140395 Code(s): K56.609 - UNSP INTESTNL OBST, UNSP TO PARTIAL VERSUS COMPLETE OBST Current Visit: Yes Problem List Initiated/Reviewed/Updated: Yes My Orders Last 24 Hours: My Active Orders 11/14/17 08:01 Ondansetron [Zofran] 4 mg IVPUSH Q4H PRN 11/14/17 08:06 Verify Patient Consent Obtain [RC] ASDIRECTED 11/14/17 08:15 Communication Order [RC] STAT VITAMIN B-1, THIAMINE, PLASMA [REF] Routine 11/14/17 11:30 Ropivacaine [Naropin 0.5%] 31 ml Dexamethasone 8 mg EPINEPHrine [Adrenalin] 0.4 mg Sodium Chloride 0.9% [Normal Saline] 46.6 ml NERVRT ASDIRECTED 11/14/17 13:00 Ketamine [Ketalar] 25 mg IV ASDIRECTED Ketamine [Ketalar] 100 mg Sodium Chloride 0.9% [Normal Saline] 99 ml IV ASDIRECTED 11/15/17 04:00 CBC W/O DIFF,HEMOGRAM [HEME] Timed Patient History Reviewed: Yes Admission H&P Reviewed: Yes Notified Requestor: No <Nimisha Felix - Last Filed: 11/15/17 10:16> H&P History of Present Illness - General Date of Service: 11/14/17 Admit Problem/Dx: Admission Diagnosis/Problem Admission Diagnosis/Problem Small bowel obstruction Source of Information: Patient, EMS Notes Reviewed History Limitations: Reports: No Limitations - History of Present Illness Onset of Symptoms: Reports: Sudden, Other (Yesterday) Symptom Onset Date: 11/13/17 Symptom Onset Time: 14:00 Duration of Symptoms: Reports: Day(s): (1 day) Location: Reports: Abdomen (RUQ and LUQ) Quality: Reports: Other (intense) Severity: Moderate Improves with: Reports: None Worsens with: Reports: Breathing, Eating Context: Reports: Other (None) Associated Symptoms: Reports: Fever/Chills (subjective fever), Headaches, Loss of Appetite, Nausea/Vomiting Other HPI/Comments: Patient presented to the ED yesterday due to intense pain, nausea and vomiting that began yesterday afternoon. ROS is positive for vomiting, hematemesis, sore throat, alternating constipation and diarrhea, headache, fever. She denies any vision changes, cough, chest pain, shortness of breath, dysuria, peripheral edema. Mid Abdomen Pain Score (Numeric/FACES): 5 Past Medical History Gastrointestinal History: Reports: GERD Other Gastrointestinal History: Ulcerative cholitis Genitourinary History: Reports: UTI, Recurrent WOOD LATHER History: Reports: Polycystic Ovaries, , Spontaneous Musculoskeletal History: Reports: Back Pain, Chronic, Other (See Below) Other Musculoskeletal History: slipped disc Neurological History: Reports: Migraines Psychiatric History: Reports: Anxiety, Depression, Panic Attack Endocrine/Metabolic History: Reports: Hypothyroidism Hematologic History: Reports: B12 Deficiency, Folic Acid Immunologic History: Reports: None Oncologic (Cancer) History: Reports: Cervix, Other (See Below) Other Oncologic History: Leep Dermatologic History: Reports: None - Infectious Disease History Infectious Disease History: Reports: Chicken Pox - Past Surgical History Head Surgeries/Procedures: Reports: None HEENT Surgical History: Reports: Tonsillectomy GI Surgical History: Reports: Bariatric Procedure, Cholecystectomy Female Surgical History: Reports: LEEP Neurological Surgical History: Reports: None Musculoskeletal Surgical History: Reports: None Social & Family History - Family History Family Medical History: Noncontributory HEENT: Reports: None Cardiac: Reports: Heart Murmur Respiratory: Reports: Asthma GI: Reports: Irritable Bowel Syndrome, Other (See Below) Other GI Family History: ulcerative colitis : Reports: Other (See Below) Other Family History: uterine cysts OBGYN: Reports: Fibroids Musculoskeletal: Reports: Arthritis, Fibromyalgia Neurological: Reports: None Psychiatric: Reports: Psych Hospitalization(s), Psychosis Endocrine/Metabolic: Reports: Diabetes, type II Hematologic: Reports: None Immunologic: Reports: None Dermatologic: Reports: None Oncologic: Reports: None - Tobacco Use Smoking Status *Q: Former Smoker Years of Tobacco use: 10 Packs/Tins Daily: 0 Used Tobacco, but Quit: Yes Month/Year Tobacco Last Used: 07/2016 Second Hand Smoke Exposure: No - Caffeine Use Caffeine Use: Reports: Coffee, Tea Other Caffeine Use: 2 coffee/ day - Alcohol Use Days Per Week of Alcohol Use: 3 Number of Drinks Per Day: 1 Total Drinks Per Week: 3 - Recreational Drug Use Recreational Drug Use: No Drug Use in Last 12 Months: No Recreational Drug Type: Reports: Methamphetamine - Living Situation & Occupation Living situation: Reports: Single (Has 3 children lives in [facility] ) H&P Review of Systems - Review of Systems: Review Of Systems: See Below General: Reports: Fever, Chills HEENT: Reports: Headaches, Sore Throat Pulmonary: Reports: No Symptoms Cardiovascular: Reports: No Symptoms Gastrointestinal: Reports: Abdominal Pain, Constipation, Diarrhea, Decreased Appetite, Hematemesis, Nausea, Vomiting Genitourinary: Reports: No Symptoms Musculoskeletal: Reports: No Symptoms Skin: Reports: No Symptoms (increase in acne recently) Psychiatric: Reports: No Symptoms Neurological: Reports: No Symptoms Hematologic/Lymphatic: Reports: No Symptoms Immunologic: Reports: No Symptoms Exam - Exam Exam: See Below - Vital Signs Vital Signs: Last Vital Signs Temp 36.5 C 11/14/17 05:05 Pulse 67 11/14/17 05:05 Resp 18 11/14/17 05:05 BP 100/55 L 11/14/17 05:05 Pulse Ox 97 11/14/17 05:05 Weight: 63.3 kg - Exam Quality Assessment: DVT Prophylaxis (SCDs) General: Alert, Oriented, Cooperative HEENT: PERRLA, Conjunctiva Clear, Hearing Intact, Pupils Equal Neck: Supple, Trachea Midline, Full Range of Motion Lungs: Clear to Auscultation, Normal Respiratory Effort Cardiovascular: Regular Rate, Regular Rhythm, Normal S1, Normal S2 GI/Abdominal Exam: Normal Bowel Sounds, Soft, Tender (right and left upper quadrants), Abnormal Bowel Sounds (Hypoactive) (Female) Exam: Deferred Rectal (Female) Exam: Deferred Back Exam: Normal Inspection Extremities: Normal Inspection, Normal Range of Motion, No Pedal Edema Skin: Warm, Intact, Moist Neurological: Cranial Nerves Intact Neuro Extensive - Mental Status: Alert, Oriented x3, Normal Mood/Affect, Normal Cognition, Memory Intact Neuro Extensive - Motor, Sensory, Reflexes: CN II-XII Intact Psychiatric: Alert, Normal Affect, Normal Mood - Patient Data Lab Results Last 24 hrs: Laboratory Results - last 24 hr 11/13/17 11/13/17 11/14/17 Range/Units 22:20 22:20 00:28 WBC 9.8 (4.5-11.0) K/uL RBC 4.44 (3.30-5.50) M/uL Hgb 14.1 D (12.0-15.0) g/dL Hct 41.6 (36.0-48.0) % MCV 94 (80-98) fL MCH 32 H (27-31) pg MCHC 34 (32-36) % Plt Count 321 (150-400) K/uL Neut % (Auto) 88 H (36-66) % Lymph % (Auto) 8 L (24-44) % [place] % (Auto) 3 (2-6) % Eos % (Auto) 1 L (2-4) % Baso % (Auto) 0 (0-1) % Sodium 143 (140-148) mmol/L Potassium 4.0 (3.6-5.2) mmol/L Chloride 106 (100-108) mmol/L Carbon Dioxide 26 (21-32) mmol/L Anion Gap 11.0 (5.0-14.0) mmol/L BUN 8 D (7-18) mg/dL Creatinine 0.7 (0.6-1.0) mg/dL Est Cr Clr Drug Dosing 89.56 mL/min Estimated GFR (MDRD) > 60 (>60) Glucose 134 H (74-106) mg/dL Calcium 9.2 D (8.5-10.1) mg/dL Total Bilirubin 0.4 (0.2-1.0) mg/dL AST 23 (15-37) U/L ALT 29 (12-78) U/L Alkaline Phosphatase 62 (46-116) U/L Total Protein 7.4 (6.4-8.2) g/dL Albumin 4.2 (3.4-5.0) g/dL Globulin 3.2 (2.3-3.5) g/dL Albumin/Globulin Ratio 1.3 (1.2-2.2) Amylase 47 (25-115) U/L Lipase 103 (73-393) U/L Urine Color Urine Appearance Urine pH (4.5-8.0) Ur Specific Mason (1.008-1.030) Urine Protein (NEGATIVE) mg/dL Urine Glucose (UA) (NEGATIVE) mg/dL Urine Ketones (NEGATIVE) mg/dL Urine Occult Blood (NEGATIVE) Urine Nitrite (NEGATIVE) Urine Bilirubin (NEGATIVE) Urine Urobilinogen (NORMAL) mg/dL Ur Leukocyte Esterase (NEGATIVE) Urine RBC (0-5) Urine WBC (0-5) Ur Epithelial Cells Amorphous Sediment Urine Bacteria Urine Mucus Urine HCG, Qual Negative 11/14/17 11/14/17 11/14/17 Range/Units 01:20 05:00 05:00 WBC 8.9 (4.5-11.0) K/uL RBC 4.00 (3.30-5.50) M/uL Hgb 12.9 (12.0-15.0) g/dL Hct 38.1 (36.0-48.0) % MCV 95 (80-98) fL MCH 32 H (27-31) pg MCHC 34 (32-36) % Plt Count 270 (150-400) K/uL Neut % (Auto) 68 H (36-66) % Lymph % (Auto) 22 L (24-44) % [place] % (Auto) 8 H (2-6) % Eos % (Auto) 2 (2-4) % Baso % (Auto) 0 (0-1) % Sodium 144 (140-148) mmol/L Potassium 4.0 (3.6-5.2) mmol/L Chloride 109 H (100-108) mmol/L Carbon Dioxide 27 (21-32) mmol/L Anion Gap 12.0 (5.0-14.0) mmol/L BUN 11 (7-18) mg/dL Creatinine 0.6 (0.6-1.0) mg/dL Est Cr Clr Drug Dosing 104.49 mL/min Estimated GFR (MDRD) > 60 (>60) Glucose 89 (74-106) mg/dL Calcium 8.2 L (8.5-10.1) mg/dL Total Bilirubin (0.2-1.0) mg/dL AST (15-37) U/L ALT (12-78) U/L Alkaline Phosphatase (46-116) U/L Total Protein (6.4-8.2) g/dL Albumin (3.4-5.0) g/dL Globulin (2.3-3.5) g/dL Albumin/Globulin Ratio (1.2-2.2) Amylase (25-115) U/L Lipase (73-393) U/L Urine Color Yellow Urine Appearance Clear Urine pH 7.0 (4.5-8.0) Ur Specific [place] 1.010 (1.008-1.030) Urine Protein Negative (NEGATIVE) mg/dL Urine Glucose (UA) Normal (NEGATIVE) mg/dL Urine Ketones Negative (NEGATIVE) mg/dL Urine Occult Blood Negative (NEGATIVE) Urine Nitrite Negative (NEGATIVE) Urine Bilirubin Negative (NEGATIVE) Urine Urobilinogen Normal (NORMAL) mg/dL Ur Leukocyte Esterase Negative (NEGATIVE) Urine RBC 0-5 (0-5) Urine WBC 0-5 (0-5) Ur Epithelial Cells Few Amorphous Sediment Not seen Urine Bacteria Not seen Urine Mucus Not seen Urine HCG, Qual Result Diagrams: 11/15/17 04:49 11/14/17 08:15 Consult PN Assessment/Plan POD#: 0 Procedures: Procedures BLOOD TYPING SEROLOGIC ABO (01/30/14) BLOOD TYPING SEROLOGIC RH(D) (01/30/14) CULTURE SCREEN ONLY (09/21/15) EGD BIOPSY SINGLE/MULTIPLE (09/21/15) EMERGENCY DEPT VISIT (03/14/14) EMERGENCY DEPT VISIT (03/14/14) RBC ANTIBODY SCREEN (01/30/14) THER/PROPH/DIAG INJ SC/IM (03/14/14) (1) Small bowel obstruction SNOMED Code(s): 991872934 Code(s): K56.609 - UNSP INTESTNL OBST, UNSP TO PARTIAL VERSUS COMPLETE OBST Current Visit: Yes Problem List Initiated/Reviewed/Updated: Yes Plan: -Patient is scheduled for laparoscopy, with possible open procedure with small bowel release. 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 -NPO for surgery. -CMP, Folate, B1, B12, Vitamin D, Ferritin and CBC with diff lab ordered for tomorrow am. Requesting Provider: Katya Hagan Date Consult Requested: 11/14/17 Reason for Consult: Partial SBO per CT Patient History Reviewed: Yes Admission H&P Reviewed: Yes Notified Requestor: No
[2017-11-14] MEDS ORDERED: Acetaminophen 500 MG Tab PO ONE (08:15)
[2017-11-14] MEDS: Ondansetron 4 MG/2 ML SDV IVPUSH PRN ×3 (08:24→21:11)
[2017-11-14] MEDS: buPROPion 100 MG Tab.SR PO SCH ×3 (08:27→21:03)
[2017-11-14] MEDS ORDERED: fentaNYL 250 MCG/5 ML SDV ONE (08:44)
[2017-11-14] MEDS ORDERED: Midazolam 1 MG/ML 2 ML SDV ONE (08:44)
[2017-11-14] MEDS ORDERED: Ondansetron 4 MG/2 ML SDV ONE (08:45)
[2017-11-14] MEDS ORDERED: Dexamethasone 4 MG/ML SDV ONE (08:45)
[2017-11-14] MEDS ORDERED: Propofol 200 MG/20 ML SDV ONE (08:45)
[2017-11-14] MEDS ORDERED: Neostigmine Methylsulfate 1 MG/ML 5 ML Syringe ONE (08:45)
[2017-11-14] MEDS ORDERED: Glycopyrrolate 0.2 MG/ML 5 ML MDV ONE (08:45)
[2017-11-14] MEDS ORDERED: Rocuronium 50 MG/5 ML Vial ONE (08:45)
[2017-11-14] MEDS ORDERED: Succinylcholine 200 MG/10 ML MDV ONE (08:45)
[2017-11-14] MEDS ORDERED: Bupivacaine 0.5%/EPINEPHrine 1:200,000 50 ML MDV ONE (09:15)
[2017-11-14] MEDS ORDERED: Meropenem 500 MG SDV ONE (09:15)
[2017-11-14] MEDS: cefOXitin 2 GM in Sodium Chloride 0.9% 50 ML IV ONE ×2 (10:06→14:16)
[2017-11-14] MEDS ORDERED: Ropivacaine 31 ML, Dexamethasone 8 MG, EPINEPHrine 0.4 MG, Sodium Chloride 0.9% 46.6 ML NERVRT SCH ×8 (11:30→13:00)
[2017-11-14] MEDS ORDERED: hydrOXYzine HCl 100 MG/2 ML SDV IM ONE (12:15)
[2017-11-14] MEDS ORDERED: fentaNYL 100 MCG/2 ML SDV IVPUSH ONE (12:30)
[2017-11-14] MEDS ORDERED: Ketamine 500 MG/5 ML MDV IV SCH (13:00)
[2017-11-14] MEDS ORDERED: LORazepam 1 MG Tab PO PRN (14:32)
[2017-11-14] MEDS ORDERED: Albuterol/Ipratropium 3.0-0.5 MG/3 ML Neb Soln INH PRN ×2 (14:36→15:00)
[2017-11-14] MEDS ORDERED: Labetalol 20 MG/4 ML Syringe IVPUSH PRN (15:00)
[2017-11-14] MEDS ORDERED: diphenhydrAMINE 50 MG/ML SDV IVPUSH PRN (15:00)
[2017-11-14] MEDS ORDERED: Scopolamine 1.5 MG Transdermal Patch TOP SCH (15:00)
[2017-11-14] MEDS ORDERED: Albuterol/Ipratropium 3.0-0.5 MG/3 ML Neb Soln INH SCH (15:00)
[2017-11-14] MEDS ORDERED: Metoclopramide 10 MG/2 ML SDV IVPUSH PRN (15:00)
[2017-11-14] MEDS ORDERED: hydrOXYzine HCl 100 MG/2 ML SDV IM PRN (15:00)
[2017-11-14] MEDS: Dextrose 5%-Lactated Ringers 1,000 ML IV SCH (15:06)
[2017-11-14] MEDS: Sodium Ferric Gluconate Cmplex 250 MG in Sodium Chloride 0.9% 100 ML IV SCH (16:05)
[2017-11-14] MEDS: Acetaminophen Soln 650 MG/20.3 ML UD Cup PO SCH ×2 (16:10→20:47)
[2017-11-14] MEDS: cefOXitin 2 GM in Sodium Chloride 0.9% 50 ML IV SCH ×2 (16:13→21:15)
[2017-11-14] MEDS: Heparin Sodium 5,000 Units/ML Vial SUBCUT SCH (18:17)
[2017-11-14] MEDS: MVI, Adult with Vitamin K 10 ML, Thiamine 100 MG, Chromium/Copper/Mang/Selen/Zn 1 ML in... IV SCH ×4 (18:18)
[2017-11-14] MEDS: Gabapentin 250 MG/5 ML Solution ML 470 ML Bottle PO SCH (20:46)
[2017-11-14] MEDS: Pantoprazole 40 MG Vial IVPUSH SCH (20:47)
[2017-11-15] MEDS: Dextrose 5%-Lactated Ringers 1,000 ML IV SCH (01:40)
[2017-11-15] MEDS: Acetaminophen Soln 650 MG/20.3 ML UD Cup PO SCH (04:26)
[2017-11-15] MEDS ORDERED: Iohexol 647 MG/ML 50 ML SDV PO STA (04:39)
[2017-11-15] MEDS: cefOXitin 2 GM in Sodium Chloride 0.9% 50 ML IV SCH ×2 (05:01→12:05)
[2017-11-15] MEDS: Ondansetron 4 MG/2 ML SDV IVPUSH PRN ×2 (05:06→20:38)
[2017-11-15] MEDS: Heparin Sodium 5,000 Units/ML Vial SUBCUT SCH ×2 (05:14→17:16)
[2017-11-15] MEDS ORDERED: Dextrose 5%-Lactated Ringers 1,000 ML IV SCH (07:43)
[2017-11-15] MEDS ORDERED: Sennosides 8.6 MG Tab PO PRN (07:48)
--- NOTE | 2017-11-15 08:28 | PCM.PN ---
- General Info Date of Service: 11/15/17 Admission Dx/Problem (Free Text): vomiting/abdominal pain Subjective Update: Patient reports that pain is controlled and is trying to limit her use of her [employer]. States that she only uses it when she feels increased pain with nausea. She is tolerating diet well. She denies having any concerns today. Functional Status: Reports: Pain Controlled, Tolerating Diet, Ambulating, Urinating, Incentive Spirometry - Review of Systems General: Reports: No Symptoms, Fatigue (Was given benadryl prophylactically for iodine contrast.) HEENT: Reports: No Symptoms (headache is improved since yesterday.) Pulmonary: Reports: No Symptoms Cardiovascular: Reports: No Symptoms Gastrointestinal: Reports: Abdominal Pain (at incision sites), Flatus, Nausea ( states that it is related to her pain) Genitourinary: Reports: No Symptoms Musculoskeletal: Reports: No Symptoms Skin: Reports: No Symptoms Neurological: Reports: No Symptoms Psychiatric: Reports: No Symptoms - Patient Data Vitals - Most Recent: Last Vital Signs Temp 36.4 C 11/15/17 07:25 Pulse 55 L 11/15/17 07:25 Resp 16 11/15/17 07:25 BP 95/58 L 11/15/17 07:25 Pulse Ox 95 11/15/17 07:25 Weight - Most Recent: 63.3 kg I&O - Last 24 Hours: Intake & Output 11/14/17 11/15/17 11/15/17 22:59 06:59 14:59 Intake Total 260 2061 Output Total 400 600 Balance -140 1461 Lab Results Last 24 Hours: Laboratory Results - last 24 hr 11/14/17 11/14/17 11/14/17 Range/Units 08:15 08:15 08:15 WBC (4.5-11.0) K/uL RBC (3.30-5.50) M/uL Hgb (12.0-15.0) g/dL Hct (36.0-48.0) % MCV (80-98) fL MCH (27-31) pg MCHC (32-36) % Plt Count (150-400) K/uL Sodium 144 (140-148) mmol/L Potassium 4.0 (3.6-5.2) mmol/L Chloride 108 (100-108) mmol/L Carbon Dioxide 28 (21-32) mmol/L Anion Gap 8.4 (5.0-14.0) mmol/L BUN 12 (7-18) mg/dL Creatinine 0.6 (0.6-1.0) mg/dL Est Cr Clr Drug Dosing 104.49 mL/min Estimated GFR (MDRD) > 60 (>60) Glucose 91 (74-106) mg/dL Calcium 8.2 L (8.5-10.1) mg/dL Ferritin 29 (8-388) ng/ml Total Bilirubin 0.3 (0.2-1.0) mg/dL AST 19 (15-37) U/L ALT 29 (12-78) U/L Alkaline Phosphatase 53 (46-116) U/L Total Protein 6.2 L (6.4-8.2) g/dL Albumin 3.5 (3.4-5.0) g/dL Globulin 2.7 (2.3-3.5) g/dL Albumin/Globulin Ratio 1.3 (1.2-2.2) Vitamin B12 286 (193-986) pg/ml Vitamin D 25-Hydroxy 52.2 (30-100) ng/mL Folate 18.2 (8.6-58.9) ng/ml 11/15/17 Range/Units 04:49 WBC 12.6 H (4.5-11.0) K/uL RBC 3.74 (3.30-5.50) M/uL Hgb 11.8 L (12.0-15.0) g/dL Hct 36.1 (36.0-48.0) % MCV 97 (80-98) fL MCH 32 H (27-31) pg MCHC 33 (32-36) % Plt Count 299 (150-400) K/uL Sodium (140-148) mmol/L Potassium (3.6-5.2) mmol/L Chloride (100-108) mmol/L Carbon Dioxide (21-32) mmol/L Anion Gap (5.0-14.0) mmol/L BUN (7-18) mg/dL Creatinine (0.6-1.0) mg/dL Est Cr Clr Drug Dosing mL/min Estimated GFR (MDRD) (>60) Glucose (74-106) mg/dL Calcium (8.5-10.1) mg/dL Ferritin (8-388) ng/ml Total Bilirubin (0.2-1.0) mg/dL AST (15-37) U/L ALT (12-78) U/L Alkaline Phosphatase (46-116) U/L Total Protein (6.4-8.2) g/dL Albumin (3.4-5.0) g/dL Globulin (2.3-3.5) g/dL Albumin/Globulin Ratio (1.2-2.2) Vitamin B12 (193-986) pg/ml Vitamin D 25-Hydroxy (30-100) ng/mL Folate (8.6-58.9) ng/ml Med Orders - Current: Current Medications Albuterol/Ipratropium (Duoneb 3.0-0.5 Mg/3 Ml) 3 ml INH Q4H PRN PRN Reason: * Bupropion HCl (Wellbutrin Sr) 100 mg PO BID [facility] Last Admin: 11/14/17 21:03 Dose: Not Given Celecoxib (Celebrex) 200 mg PO DAILY@0800 [facility] Cyanocobalamin (Vitamin B12) 1,000 mcg IM ONETIME ONE Stop: 11/16/17 09:01 Diphenhydramine HCl (Benadryl) 25 - 50 mg IVPUSH Q4H PRN PRN Reason: ITCHING Last Admin: 11/15/17 04:24 Dose: 25 mg Gabapentin (Neurontin) 300 mg PO TID [facility] Last Admin: 11/14/17 20:46 Dose: 300 mg Heparin Sodium (Porcine) (Heparin Sodium) 5,000 units SUBCUT Q12H [facility] Last Admin: 11/15/17 05:14 Dose: 5,000 units Hydromorphone HCl (Dilaudid Storage Management Architect 15 Mg In Ns 30 Ml) 0 mg IV ASDIRECTED PRN; Protocol PRN Reason: Pain Last Admin: 11/14/17 01:25 Dose: 15 mg Hydroxyzine HCl (Vistaril) 75 - 100 mg IM Q4H PRN PRN Reason: pain Multivitamins/Minerals 10 ml/Thiamine HCl 100 mg/ Chromium/Copper/Manganese/ Seleni/Zn 1 ml/ Dextrose/Lactated Ringer's 1,012 mls @ 150 mls/hr IV DAILY@ 1600 [facility] Last Admin: 11/14/17 18:18 Dose: 150 mls/hr Ferric Sodium Gluconate Complex 250 mg/ Sodium Chloride 120 mls @ 60 mls/hr IV Q24H [facility] Stop: 11/15/17 16:59 Last Admin: 11/14/17 16:05 Dose: 60 mls/hr Cefoxitin Sodium 2 gm/ Sodium (Chloride) 50 mls @ 100 mls/hr IV Q6H [facility] Stop: 11/15/17 10:29 Last Admin: 11/15/17 05:01 Dose: 100 mls/hr Dextrose/Lactated Ringer's (Dextrose 5%-Lactated Ringers) 1,000 mls @ 150 mls/ hr IV ASDIRECTED [facility] Labetalol HCl (Normodyne) 5 - 15 mg IVPUSH Q1H PRN PRN Reason: SBP over 160 OR DBP over 95 Levothyroxine Sodium (Synthroid) 88 mcg PO ACBREAKFAST [facility] Last Admin: 11/14/17 07:42 Dose: Not Given Lorazepam (Ativan) 1 mg PO Q4H PRN PRN Reason: * Lorazepam (Ativan) 1 mg IV Q4H PRN PRN Reason: * Metoclopramide HCl (Reglan) 10 mg IVPUSH Q6H PRN PRN Reason: NAUSEA NOT CONTROL BY ZOFRAN Miscellaneous Information (Remove Patch) 1 ea TRDERM ONETIME ONE Stop: 11/16/17 10:01 Naloxone HCl (Narcan) 0.4 mg IVPUSH Q2M PRN PRN Reason: Respiratory Distress Scopolamine Patch (Check) 1 each TOP DAILY [facility] Stop: 11/16/17 15:01 Ondansetron HCl (Zofran) 4 mg IVPUSH Q4H PRN PRN Reason: Nausea/Vomiting Last Admin: 11/15/17 05:06 Dose: 4 mg Oxycodone/Acetaminophen (Percocet 325-5 Mg) 1 - 2 tab PO Q4H PRN PRN Reason: paiin Pantoprazole Sodium (Protonix Iv) 40 mg IVPUSH BEDTIME [facility] Last Admin: 11/14/17 20:47 Dose: 40 mg Scopolamine (Transderm-Scop) 1.5 mg TOP Q72H [facility] Stop: 11/16/17 10:00 Last Admin: 11/14/17 16:10 Dose: 1.5 mg Senna (Senna) 8.6 mg PO BEDTIME PRN PRN Reason: Constipation Discontinued Medications Acetaminophen (Tylenol Extra Strength) 1,000 mg PO ONETIME ONE Stop: 11/14/17 08:16 Last Admin: 11/14/17 08:26 Dose: 1,000 mg Acetaminophen (Tylenol) 650 mg PO Q6H [facility] Last Admin: 11/15/17 04:26 Dose: 650 mg Albuterol (Proventil Neb Soln) 2.5 mg NEB Q4H PRN PRN Reason: Shortness Of Breath/wheezing Bupivacaine HCl/Epinephrine Bitart (Marcaine 0.5%/Epinephrine 1:200,000) Confirm Administered Dose 50 ml .ROUTE .STK-MED ONE Stop: 11/14/17 09:16 Ropivacaine 31 ml/Dexamethasone 8 mg/Epinephrine HCl 0.4 mg/ Sodium Chloride 46.6 ml 0 ml NERVRT ASDIRECTED [facility] Last Admin: 11/14/17 10:40 Dose: 80 syringe Dexamethasone (Dexamethasone) Confirm Administered Dose 4 mg .ROUTE .K-MED ONE Stop: 11/14/17 08:46 Fentanyl (Sublimaze) Confirm Administered Dose 250 mcg .ROUTE .K-MED ONE Stop: 11/14/17 08:45 Fentanyl (Sublimaze) 100 mcg IVPUSH ONETIME ONE Stop: 11/14/17 12:31 Last Admin: 11/14/17 12:25 Dose: 100 mcg Glycopyrrolate (Robinul) Confirm Administered Dose 1 mg .ROUTE .STK-MED ONE Stop: 11/14/17 08:46 Hydromorphone HCl (Dilaudid) 1 mg IVPUSH ONETIME ONE Stop: 11/13/17 23:25 Last Admin: 11/14/17 00:00 Dose: 1 mg Hydroxyzine HCl (Vistaril) 50 mg IM ONETIME ONE Stop: 11/14/17 12:16 Last Admin: 11/14/17 12:09 Dose: 50 mg Sodium Chloride (Normal Saline) 1,000 mls @ 300 mls/hr IV ASDIRECTED [facility] Last Admin: 11/13/17 22:39 Dose: 300 mls/hr Lactated Ringer's (Ringers, Lactated) 1,000 mls @ 125 mls/hr IV ASDIRECTED [facility] Last Admin: 11/14/17 09:06 Dose: 125 mls/hr Ketamine HCl 100 mg/ Sodium (Chloride) 100 mls @ 15.03 mls/hr IV ASDIRECTED [facility] Cefoxitin Sodium 2 gm/ Sodium (Chloride) 50 mls @ 100 mls/hr IV ONETIME ONE Stop: 11/14/17 13:29 Last Admin: 11/14/17 14:16 Dose: Not Given Dextrose/Lactated Ringer's (Dextrose 5%-Lactated Ringers) 1,000 mls @ 150 mls/ hr IV ASDIRECTED [facility] Last Admin: 11/15/17 01:40 Dose: 150 mls/hr Iohexol (Omnipaque-300) 50 ml PO .ASDIRECTED STA Stop: 11/15/17 04:40 Last Admin: 11/15/17 04:50 Dose: 50 ml Ketamine HCl (Ketalar) 25 mg IV ASDIRECTED [facility] Lorazepam (Ativan) 1 mg IV Q6H PRN PRN Reason: Nausea/Vomiting Meropenem (Merrem) Confirm Administered Dose 500 mg .ROUTE .STK-MED ONE Stop: 11/14/17 09:16 Last Admin: 11/14/17 11:16 Dose: 500 mg Midazolam HCl (Versed 1 Mg/Ml) Confirm Administered Dose 2 mg .ROUTE .STK-MED ONE Stop: 11/14/17 08:45 Neostigmine Methylsulfate (Neostigmine) Confirm Administered Dose 5 mg .ROUTE .STK-MED ONE Stop: 11/14/17 08:46 Ondansetron HCl (Zofran) 4 mg IVPUSH ONETIME ONE Stop: 11/13/17 22:20 Last Admin: 11/13/17 22:41 Dose: 4 mg Ondansetron HCl (Zofran) Confirm Administered Dose 4 mg .ROUTE .STK-MED ONE Stop: 11/14/17 08:46 Pantoprazole Sodium (Protonix Iv) 40 mg IVPUSH Q24H [facility] Last Admin: 11/14/17 01:19 Dose: 40 mg Propofol (Diprivan 20 Ml) Confirm Administered Dose 200 mg .ROUTE .STK-MED ONE Stop: 11/14/17 08:46 Rocuronium [place] (Zemuron) Confirm Administered Dose 50 mg .ROUTE .STK-MED ONE Stop: 11/14/17 08:46 Sodium Chloride (Normal Saline) 500 ml IRR .STK-MED ONE Stop: 11/14/17 11:17 Last Admin: 11/14/17 11:16 Dose: 500 ml Succinylcholine Chloride (Quelicin) Confirm Administered Dose 200 mg .ROUTE .[employer] ONE Stop: 11/14/17 08:46 - Exam Quality Assessment: DVT Prophylaxis General: Alert, Oriented, Cooperative, No Acute Distress HEENT: Pupils Equal, Pupils Reactive Neck: Supple, Trachea Midline Lungs: Clear to Auscultation, Normal Respiratory Effort, Crackles (few crackles heard to bases bilaterally) Cardiovascular: Regular Rate, Regular Rhythm GI/Abdominal Exam: Normal Bowel Sounds, No Distention, Tender (at incision sites ) (Female) Exam: Deferred Back Exam: Normal Inspection, Full Range of Motion Extremities: Normal Range of Motion, Non-Tender, Pedal Edema (trace to lower extremities and hands bilaterally ) Skin: Warm, Dry, Intact Wound/Incisions: Other (abdominal binder was in place.) Neurological: No New Focal Deficit, Normal Speech, Normal Tone Psy/Mental Status: Alert, Normal Affect, Normal Mood - Problem List & Annotations (1) Small bowel obstruction SNOMED Code(s): 975122741 Code(s): K56.609 - UNSP INTESTNL OBST, UNSP TO PARTIAL VERSUS COMPLETE OBST Status: Acute Current Visit: Yes (2) Status post laparoscopic surgery SNOMED Code(s): 261483041, 490065878, 606681611 Code(s): Z98.890 - OTHER SPECIFIED POSTPROCEDURAL STATES Status: Acute Current Visit: Yes (3) Status post small bowel resection SNOMED Code(s): 837900829, 701452125 Code(s): Z90.49 - ACQUIRED ABSENCE OF OTHER SPECIFIED PARTS OF DIGESTIVE TRACT Status: Acute Current Visit: Yes - Problem List Review Problem List Initiated/Reviewed/Updated: Yes - Assessment Assessment:: S/p laparoscopic small bowel resection. - Plan Plan:: -Decrease IVF to 100 ml/hr. -Start step IV diet today. -Transition to PO medications. 1-2 tab Percocet 325-5 mg PO q 4 hours prn for pain. -Celebrex 200 mg PO. -Senna 8.6 mg PO bedtime for constipation. -Ferric gluconate 250 mg IVPB over 2 hours. Second dose given.
[2017-11-15] MEDS: buPROPion 100 MG Tab.SR PO SCH ×2 (08:55→20:39)
[2017-11-15] MEDS: Celecoxib 200 MG Cap PO SCH (08:56)
[2017-11-15] MEDS: SCOPOLAMINE PATCH CHECK TOP SCH (08:56)
[2017-11-15] MEDS: Levothyroxine 88 MCG Tab PO SCH (08:56)
[2017-11-15] MEDS: Gabapentin 250 MG/5 ML Solution ML 470 ML Bottle PO SCH ×3 (08:59→22:06)
--- NOTE | 2017-11-15 10:33 | CR ---
UGI wo KUB HISTORY: eval R -Y GBP FINDINGS: After administration of oral contrast, upright views were obtained. Post operative changes gastric bypass. Surgical drains in place. No evidence for leak. Contrast passes freely into proximal small bowel loops. Minimal lucency beneath the left and right hemidiaphragms could represent a tiny a mount of free air. Subcutaneous gas in the lower left chest and left abdominal wall. Minimal subcutan eous gas in the right abdominal wall. This is assumed to be postoperative. Clinically correlate. Surg ical clips right upper quadrant. IUD. IMPRESSION: No evidence for contrast leak or obstruction. Please see discussion above.
[2017-11-15] MEDS: Acetaminophen/oxyCODONE 325-5 MG Tab PO PRN ×4 (14:43→22:05)
[2017-11-15] MEDS: Sodium Ferric Gluconate Cmplex 250 MG in Sodium Chloride 0.9% 100 ML IV SCH (14:51)
[2017-11-15] MEDS: MVI, Adult with Vitamin K 10 ML, Thiamine 100 MG, Chromium/Copper/Mang/Selen/Zn 1 ML in... IV SCH ×4 (16:43)
[2017-11-15] MEDS: Pantoprazole 40 MG Vial IVPUSH SCH (20:44)
[2017-11-15] MEDS ORDERED: Magnesium Hydroxide 400 MG/5 ML Susp 30 ML Cup PO ONE (21:07)
[2017-11-15] MEDS ORDERED: Bisacodyl 5 MG Tab PO ONE (21:07)
[2017-11-16] MEDS: Acetaminophen/oxyCODONE 325-5 MG Tab PO PRN ×3 (02:37→11:24)
[2017-11-16] MEDS ORDERED: Bisacodyl 5 MG Tab ONE (05:41)
[2017-11-16] MEDS: Heparin Sodium 5,000 Units/ML Vial SUBCUT SCH (05:42)
[2017-11-16 07:38] VITALS: BP 95/55
[2017-11-16] MEDS: Celecoxib 200 MG Cap PO SCH (07:44)
[2017-11-16] MEDS: Levothyroxine 88 MCG Tab PO SCH (07:44)
[2017-11-16] MEDS ORDERED: Cyanocobalamin (Vitamin B12) 1,000 MCG/ML SDV IM ONE (09:00)
--- NOTE | 2017-11-16 09:31 | PCM.DCSUM1 ---
Discharge Summary - Hospital Course HPI Initial Comments: Admitted on 11/13/2017 through the ED due to sudden abdominal pain and vomiting. Brief History: Patient was admitted from the ED on 11/13/2017 due to pain, vomiting and CT showing a small bowel obstruction. She had laparoscopic small bowel resection on 11/14/2017 and tolerated the procedure well. Upper GI and small bowel X-ray showed no evidence of contrast leak or obstruction on 2017. She was switched to oral medications on 11/15/2017 as well as Step IV diet which she tolerated well. Ferric gluconate was given during this admission on and 11/15. She was given Senna and had a BM on 11/16/2017. She is feeling well on day of discharge with pain controlled on oral medications. - Discharge Data Discharge Date: 11/16/17 Discharge Disposition: Home, Self-Care 01 Condition: Good - Discharge Diagnosis/Problem(s) (1) Small bowel obstruction SNOMED Code(s): 120031653 ICD Code: K56.609 - UNSP INTESTNL OBST, UNSP TO PARTIAL VERSUS COMPLETE OBST Status: Acute Current Visit: Yes - Patient Summary/Data Consults: Consultations 11/14/17 01:05 Consult to Physician [CONS] Routine Consulting Provider: Rudolph Crump Courtesy Call Completed to Consulting Physician: Yes: Will evaluate in a.m. orders written Reason for Consult: Small bowel obstruction Person Notified: Dr. Rudolph Crump Date Notified: 11/13/17 Time Notified: 23:30 11/14/17 14:17 Consult to Bariatric Services [CONS] Routine Comment: Consult to [employer] [CONS] Routine Comment: Physician Instructions: Quantity: Respiratory Care Assess and Treatment [CONS] Routine Comment: Physician Instructions: Post-Op Pneumonia Prevention - Patient Instructions Diet: Usual Diet as Tolerated, Drink 8-10+ Glasses/Day Diet, Other: Step 4 Gastric Bypass Diet Activity: As Tolerated, No Lifting Over 10 Pounds (for 2 weeks ) Driving: Do Not Drive (while on pain medication) Showering/Bathing: May Shower Wound/Incision Care: Keep Operative Site/Wound Site Clean and Dry Notify Provider of: Fever, Increased Pain, Nausea and/or Vomiting Other/Special Instructions: Use incentive inspirometer 10 times every hour while awake for 1 week. - Discharge Plan Prescriptions/Med Rec: Acetaminophen/oxyCODONE [Percocet 325-5 MG] 1 - 2 tab PO Q4H PRN #40 tablet PRN Reason: Pain Gabapentin [Neurontin] 300 mg PO TID #42 ml Magnesium Hydroxide [Milk of Magnesia] 30 ml PO DAILY PRN #2 ml PRN Reason: constipation Home Medications: Home Meds Levothyroxine Sodium [Synthroid] 88 mcg PO DAILY 03/07/14 [History] Ascorbic Acid [Vitamin C] 500 mg PO DAILY 09/18/15 [History] Calcium Citrate 500 mg PO DAILY 09/18/15 [History] Cholecalciferol (Vitamin D3) [Vitamin D3] 2,000 units PO DAILY 09/18/15 [History ] Cranberry Extract [Cranberry] 1,000 mg PO .ALICE OTHER DAY 09/18/15 [History] Cyanocobalamin (Vitamin B-12) [Vitamin B-12] 1,000 mcg IM .QOW 09/18/15 [History ] Cyanocobalamin (Vitamin B-12) [Vitamin B-12] 5,000 mcg SL BID 09/18/15 [History] Ferrous Fumarate [Ferrocite] 324 mg PO DAILY 09/18/15 [History] Folic Acid 800 mcg PO DAILY 09/18/15 [History] Multivitamin [Flintstones] 1 tab PO BID 09/18/15 [History] Omeprazole [Prilosec] 40 mg PO DAILY PRN 09/18/15 [History] Papaya [Papaya Enzyme] 1 tab PO DAILY PRN 09/18/15 [History] Sennosides [Senna] 8.6 mg PO BEDTIME PRN 09/18/15 [History] Thiamine [Vitamin B-1] 100 mg PO DAILY 09/18/15 [History] Pantoprazole Sodium [Protonix] 40 mg PO DAILY 09/21/15 [History] buPROPion HCl [Bupropion HCl Sr] 100 mg PO BID 07/03/16 [History] Acetaminophen/HYDROcodone [Prairie 325-5 MG] 1 - 2 tab PO Q4H PRN #50 tablet 07/06 [Rx] Acetaminophen/oxyCODONE [Percocet 325-5 MG] 1 - 2 tab PO Q4H PRN #40 tablet 07/24 [Rx] Gabapentin [Neurontin] 300 mg PO TID #42 ml 11/16/17 [Rx] Magnesium Hydroxide [Milk of Magnesia] 30 ml PO DAILY PRN #2 ml 11/16/17 [Rx] Referrals: Madan Castellano MD [Primary Care Provider] - Sulema Hebert PA-C [Physician Retail Sales Merchandiser Development] - 11/24/17 10:00 am - General Info Date of Service: 11/16/17 Admission Dx/Problem (Free Text: small bowel obstruction Subjective Update: Patient reports that she is feeling better today. Is tolerating small, frequent meals without nausea. Is passing flatus and had a BM this morning. States that she feels a little bloated this morning, as if she needs to have another BM. She denies having any concerns going home today. Functional Status: Reports: Pain Controlled, Tolerating Diet, Ambulating, Urinating - Review of Systems General: Reports: No Symptoms HEENT: Reports: Other (dry mouth due to mouth breathing while sleeping) Pulmonary: Reports: No Symptoms Cardiovascular: Reports: No Symptoms Gastrointestinal: Reports: Abdominal Pain (at RUQ and LLQ incision sites), Flatus Genitourinary: Reports: No Symptoms Musculoskeletal: Reports: No Symptoms Skin: Reports: No Symptoms Neurological: Reports: No Symptoms Psychiatric: Reports: No Symptoms - Patient Data Vitals - Most Recent: Last Vital Signs Temp 37.1 C 11/16/17 07:35 Pulse 73 11/16/17 07:35 Resp 16 11/16/17 07:35 BP 95/55 L 11/16/17 07:35 Pulse Ox 97 11/16/17 07:35 Weight - Most Recent: 63.3 kg I&O - Last 24 hours: Intake & Output 11/15/17 11/16/17 11/16/17 22:59 06:59 14:59 Intake Total 470 1600 Output Total 900 250 Balance -430 1350 Med Orders - Current: Current Medications Albuterol/Ipratropium (Duoneb 3.0-0.5 Mg/3 Ml) 3 ml INH Q4H PRN PRN Reason: * Celecoxib (Celebrex) 200 mg PO DAILY@0800 JULITO Last Admin: 11/16/17 07:44 Dose: 200 mg Diphenhydramine HCl (Benadryl) 25 - 50 mg IVPUSH Q4H PRN PRN Reason: ITCHING Last Admin: 11/15/17 04:24 Dose: 25 mg Gabapentin (Neurontin) 300 mg PO TID [facility] Last Admin: 11/15/17 22:06 Dose: 300 mg Heparin Sodium (Porcine) (Heparin Sodium) 5,000 units SUBCUT Q12H [facility] Last Admin: 11/16/17 05:42 Dose: 5,000 units Hydroxyzine HCl (Vistaril) 75 - 100 mg IM Q4H PRN PRN Reason: pain Multivitamins/Minerals 10 ml/Thiamine HCl 100 mg/ Chromium/Copper/Manganese/ Seleni/Zn 1 ml/ Dextrose/Lactated Ringer's 1,012 mls @ 150 mls/hr IV DAILY@ 1600 [facility] Last Admin: 11/15/17 16:43 Dose: 150 mls/hr Labetalol HCl (Normodyne) 5 - 15 mg IVPUSH Q1H PRN PRN Reason: SBP over 160 OR DBP over 95 Levothyroxine Sodium (Synthroid) 88 mcg PO ACBREAKFAST [facility] Last Admin: 11/16/17 07:44 Dose: 88 mcg Lorazepam (Ativan) 1 mg PO Q4H PRN PRN Reason: * Lorazepam (Ativan) 1 mg IV Q4H PRN PRN Reason: * Metoclopramide HCl (Reglan) 10 mg IVPUSH Q6H PRN PRN Reason: NAUSEA NOT CONTROL BY ZOFRAN Miscellaneous Information (Remove Patch) 1 ea TRDERM ONETIME ONE Stop: 11/16/17 10:01 Scopolamine Patch (Check) 1 each TOP DAILY [facility] Stop: 11/16/17 15:01 Last Admin: 11/15/17 08:56 Dose: Not Given Ondansetron HCl (Zofran) 4 mg IVPUSH Q4H PRN PRN Reason: Nausea/Vomiting Last Admin: 11/15/17 20:38 Dose: 4 mg Oxycodone/Acetaminophen (Percocet 325-5 Mg) 1 - 2 tab PO Q4H PRN PRN Reason: paiin Last Admin: 11/16/17 06:42 Dose: 2 tab Pantoprazole Sodium (Protonix Iv) 40 mg IVPUSH BEDTIME [facility] Last Admin: 11/15/17 20:44 Dose: 40 mg Scopolamine (Transderm-Scop) 1.5 mg TOP Q72H [facility] Stop: 11/16/17 10:00 Last Admin: 11/14/17 16:10 Dose: 1.5 mg Senna (Senna) 8.6 mg PO BEDTIME PRN PRN Reason: Constipation Last Admin: 11/15/17 17:16 Dose: 8.6 mg Discontinued Medications Acetaminophen (Tylenol Extra Strength) 1,000 mg PO ONETIME ONE Stop: 11/14/17 08:16 Last Admin: 11/14/17 08:26 Dose: 1,000 mg Acetaminophen (Tylenol) 650 mg PO Q6H [facility] Last Admin: 11/15/17 04:26 Dose: 650 mg Albuterol (Proventil Neb Soln) 2.5 mg NEB Q4H PRN PRN Reason: Shortness Of Breath/wheezing Bisacodyl (Dulcolax) 10 mg PO ONETIME ONE Stop: 11/15/17 21:08 Last Admin: 11/16/17 05:42 Dose: 10 mg Bisacodyl (Dulcolax) Confirm Administered Dose 10 mg .ROUTE .STK-MED ONE Stop: 11/16/17 05:42 Last Admin: 11/16/17 06:41 Dose: Not Given Bupivacaine HCl/Epinephrine Bitart (Marcaine 0.5%/Epinephrine 1:200,000) Confirm Administered Dose 50 ml .ROUTE .STK-MED ONE Stop: 11/14/17 09:16 Bupropion HCl (Wellbutrin Sr) 100 mg PO BID [facility] Last Admin: 11/15/17 20:39 Dose: Not Given Ropivacaine 31 ml/Dexamethasone 8 mg/Epinephrine HCl 0.4 mg/ Sodium Chloride 46.6 ml 0 ml NERVRT ASDIRECTED [facility] Last Admin: 11/14/17 10:40 Dose: 80 syringe Cyanocobalamin (Vitamin B12) 1,000 mcg IM ONETIME ONE Stop: 11/16/17 09:01 Dexamethasone (Dexamethasone) Confirm Administered Dose 4 mg .ROUTE .STK-MED ONE Stop: 11/14/17 08:46 Fentanyl (Sublimaze) Confirm Administered Dose 250 mcg .ROUTE .STK-MED ONE Stop: 11/14/17 08:45 Fentanyl (Sublimaze) 100 mcg IVPUSH ONETIME ONE Stop: 11/14/17 12:31 Last Admin: 11/14/17 12:25 Dose: 100 mcg Glycopyrrolate (Robinul) Confirm Administered Dose 1 mg .ROUTE .STK-MED ONE Stop: 11/14/17 08:46 Hydromorphone HCl (Dilaudid) 1 mg IVPUSH ONETIME ONE Stop: 11/13/17 23:25 Last Admin: 11/14/17 00:00 Dose: 1 mg Hydromorphone HCl (Dilaudid Gun Stocker 15 Mg In Ns 30 Ml) 0 mg IV ASDIRECTED PRN; Protocol PRN Reason: Pain Last Admin: 11/14/17 01:25 Dose: 15 mg Hydroxyzine HCl (Vistaril) 50 mg IM ONETIME ONE Stop: 11/14/17 12:16 Last Admin: 11/14/17 12:09 Dose: 50 mg Sodium Chloride (Normal Saline) 1,000 mls @ 300 mls/hr IV ASDIRECTED [facility] Last Admin: 11/13/17 22:39 Dose: 300 mls/hr Lactated Ringer's (Ringers, Lactated) 1,000 mls @ 125 mls/hr IV ASDIRECTED [facility] Last Admin: 11/14/17 09:06 Dose: 125 mls/hr Ketamine HCl 100 mg/ Sodium (Chloride) 100 mls @ 15.03 mls/hr IV ASDIRECTED JULITO Cefoxitin Sodium 2 gm/ Sodium (Chloride) 50 mls @ 100 mls/hr IV ONETIME ONE Stop: 11/14/17 13:29 Last Admin: 11/14/17 14:16 Dose: Not Given Ferric Sodium Gluconate Complex 250 mg/ Sodium Chloride 120 mls @ 60 mls/hr IV Q24H [facility] Stop: 11/15/17 16:59 Last Admin: 11/15/17 14:51 Dose: 60 mls/hr Cefoxitin Sodium 2 gm/ Sodium (Chloride) 50 mls @ 100 mls/hr IV Q6H [facility] Stop: 11/15/17 10:29 Last Admin: 11/15/17 12:05 Dose: 100 mls/hr Dextrose/Lactated Ringer's (Dextrose 5%-Lactated Ringers) 1,000 mls @ 150 mls/ hr IV ASDIRECTED [facility] Last Admin: 11/15/17 01:40 Dose: 150 mls/hr Dextrose/Lactated Ringer's (Dextrose 5%-Lactated Ringers) 1,000 mls @ 150 mls/ hr IV ASDIRECTED [facility] Last Admin: 11/15/17 08:53 Dose: 150 mls/hr Iohexol (Omnipaque-300) 50 ml PO .ASDIRECTED [facility] Stop: 11/15/17 04:40 Last Admin: 11/15/17 04:50 Dose: 50 ml Ketamine HCl (Ketalar) 25 mg IV ASDIRECTED [facility] Lorazepam (Ativan) 1 mg IV Q6H PRN PRN Reason: Nausea/Vomiting Magnesium Hydroxide (Milk Of Magnesia) 30 ml PO ONETIME ONE Stop: 11/15/17 21:08 Last Admin: 11/15/17 22:05 Dose: 30 ml Meropenem (Merrem) Confirm Administered Dose 500 mg .ROUTE .STK-MED ONE Stop: 11/14/17 09:16 Last Admin: 11/14/17 11:16 Dose: 500 mg Midazolam HCl (Versed 1 Mg/Ml) Confirm Administered Dose 2 mg .ROUTE .STK-MED ONE Stop: 11/14/17 08:45 Naloxone HCl (Narcan) 0.4 mg IVPUSH Q2M PRN PRN Reason: Respiratory Distress Neostigmine Methylsulfate (Neostigmine) Confirm Administered Dose 5 mg .ROUTE .STK-MED ONE Stop: 11/14/17 08:46 Ondansetron HCl (Zofran) 4 mg IVPUSH ONETIME ONE Stop: 11/13/17 22:20 Last Admin: 11/13/17 22:41 Dose: 4 mg Ondansetron HCl (Zofran) Confirm Administered Dose 4 mg .ROUTE .STK-MED ONE Stop: 11/14/17 08:46 Pantoprazole Sodium (Protonix Iv) 40 mg IVPUSH Q24H [facility] Last Admin: 11/14/17 01:19 Dose: 40 mg Propofol (Diprivan 20 Ml) Confirm Administered Dose 200 mg .ROUTE .STK-MED ONE Stop: 11/14/17 08:46 Rocuronium Jewett (Zemuron) Confirm Administered Dose 50 mg .ROUTE .STK-MED ONE Stop: 11/14/17 08:46 Sodium Chloride (Normal Saline) 500 ml IRR .STK-MED ONE Stop: 11/14/17 11:17 Last Admin: 11/14/17 11:16 Dose: 500 ml Succinylcholine Chloride (Quelicin) Confirm Administered Dose 200 mg .ROUTE .K -MED ONE Stop: 11/14/17 08:46 - Exam General: Reports: Alert, Oriented, Cooperative, No Acute Distress HEENT: Reports: Pupils Equal, Pupils Reactive Neck: Reports: Supple, Trachea Midline Lungs: Reports: Clear to Auscultation, Normal Respiratory Effort Cardiovascular: Reports: Regular Rate, Regular Rhythm GI/Abdominal Exam: Normal Bowel Sounds, Soft, Tender (to RUQ and LLQ incision sites) (Female) Exam: Deferred Rectal (Female) Exam: Deferred Back Exam: Reports: Normal Inspection, Full Range of Motion Extremities: Normal Inspection, Normal Range of Motion Skin: Reports: Warm, Dry, Intact Neurological: Reports: No New Focal Deficit Psy/Mental Status: Reports: Alert, Normal Affect, Normal Mood Discharge Operative/Procedures - Procedures Performed Operations: laparoscopic small bowel resection on 11/14/2017 Operations/Procedure Comment: She is tolerating PO intake well after the procedure. She is passing flatus and has had a BM.
[2017-11-16] MEDS: Gabapentin 250 MG/5 ML Solution ML 470 ML Bottle PO SCH (10:07)
[2017-11-16] MEDS: SCOPOLAMINE PATCH CHECK TOP SCH (10:08)
--- NOTE | 2017-11-21 08:00 | OR ---
DATE OF PROCEDURE: 11/14/2017 PREOPERATIVE DIAGNOSIS: Partial small bowel obstruction. POSTOPERATIVE DIAGNOSES: 1. Partial small bowel obstruction at jejunojejunostomy. 2. Frond-like linear peritoneal lesions over the small bowel mesentery. 3. Extensive intra-abdominal adhesions. OPERATIVE PROCEDURES: Diagnostic laparoscopy with lysis of extensive adhesions and: 1. Small bowel resection (51655). 2. Excision of frond-like peritoneal nodule overlying the small bowel mesentery. 3. Placement of Vicryl mesh to limit recurrent adhesions between the pelvis, the abdominal wall, and underlying viscera (34206). ANESTHESIA: General. ASSISTANTS: 1. Sulema Hebert PA-C. 2. PEDRO Akins. 3. PEDRO Montilla. INDICATION FOR PROCEDURE: A 32-year-old admitted overnight with a picture of partial small bowel obstruction. After preoperative evaluations and discussion, she wished to proceed with a diagnostic laparoscopy, laparotomy if necessary, and release of the bowel obstruction with bowel resection as indicated. Potential risks including bleeding and perforation were discussed, and the patient wishes to proceed. DETAILS OF PROCEDURE: The patient was taken to the operating room and placed in a supine position. After general endotracheal anesthesia was induced, she was converted to a lithotomy position. Webber catheter was inserted and the abdomen prepped and draped. In the left lower quadrant, a transverse incision was made and peritoneal cavity entered under direct vision with an Optiview trocar, inflated to 15 mmHg pressure with CO2. Laparoscope was then reinserted. No underlying trocar insertion site injuries were seen. Following this, eventually 4 additional trocars were placed across the upper and mid abdomen, and general exploration was undertaken. The patient was noted to have, on tracing down the Miranda limb, an area of adhesions around the jejunojejunostomy. As these were freed up, the patient appeared to have what appeared to be somewhat of a fixed angulation or stricturing at the point where the small bowel, consisting of the Miranda limb, entered the jejunojejunostomy. The anastomosis per se was otherwise unremarkable, and the remainder of the traced out pancreaticoduodenal limb and common limbs of the small bowel were unremarkable. During the course of the dissection, a roughly 6 cm linear, frond-like peritoneal nodular lesion was identified, and this was excised and sent for as a separate specimen to rule out any occult malignancy. This lesion in total length was measured at 6 cm. At this point, a decision was made to detach the Miranda limb as it entered the biliopancreatic limb, i.e. at the point of stricturing. This was accomplished with a PAULO lima load to facilitate subsequent anastomosis. Some of the underlying mesentery was divided, and that specimen of small bowel was then excised by means of an additional PAULO lima load and the small bowel specimen delivered from the field. GI tract continuity was then reestablished with a new jejunojejunostomy created between the end of the Miranda limb and the small bowel, roughly 20 cm distal to the original jejunojejunostomy. The patient's BMI is around 25, so additional weight loss is not needed at this point, so this was not revised in a way that would create more of a distal or malabsorptive small bowel configuration. After lining the segment of the small bowel with some 0 Ethibond stitches, the anastomosis was accomplished with internal firing of the PAULO lima load. The common opening was then closed transversely with the purple load, the angles were anastomosed, and the mesenteric defect was then reinforced with some additional 0 Ethibond sutures. At that point, no further problems were noted. The patient was felt to be high risk for recurrent adhesion formation between the pelvis and abdominal wall. Given this, a 12-inch segment of Vicryl mesh was placed behind the urinary bladder in the pelvis, along the pelvic sidewalls, and over the abdominal wall, including the area of the new anastomosis, and at that point, the trocars were sequentially removed, peritoneal cavity was deflated, and incisions were closed with some 4-0 Vicryl skin stitch. The fascia at the 12-mm site had also been closed with 0 Vicryl stitch. The patient was taken to the recovery room in satisfactory condition. Physician public relations assistant, Sulema Hebert, played an essential role in assisting in this case, helping to position the patient, retract structures as needed, as well as suturing and cutting sutures when indicated. Her presence improved the patient's safety and decreased operative time. Rudolph Crump MD /[id number]
== END 2017-11-16 11:44 | disposition home or self-care (01) | DRG 224 ==
LOC: JP.ED 21:30 → JP.MS 23:49
PROVIDERS: ADMIT Surgery; ATTEND Surgery
PROC: 0DBA4ZX Excision of Jejunum, Percutaneous Endoscopic Approach, Diagnostic (ICD-10-PCS; principal; 2017-11-14)
PROC: 0DNA4ZZ Release Jejunum, Percutaneous Endoscopic Approach (ICD-10-PCS; 2017-11-14)
PROC: 3E0M45Z Introduction of Adhesion Barrier into Peritoneal Cavity, Percutaneous Endoscopic Approach (ICD-10-PCS; 2017-11-14)
PROC: 0DBW4ZX Excision of Peritoneum, Percutaneous Endoscopic Approach, Diagnostic (ICD-10-PCS; 2017-11-14)
DX: K56.50 Intestinal adhesions [bands], unspecified as to partial versus complete obstruction (principal); K21.9 Gastro-esophageal reflux disease without esophagitis; G89.29 Other chronic pain; E03.9 Hypothyroidism, unspecified; F41.9 Anxiety disorder, unspecified; F32.9 Major depressive disorder, single episode, unspecified; N83.201 Unspecified ovarian cyst, right side; K51.90 Ulcerative colitis, unspecified, without complications; Z79.899 Other long term (current) drug therapy; Z79.891 Long term (current) use of opiate analgesic; Z98.84 Bariatric surgery status; Z87.11 Personal history of peptic ulcer disease; Z88.8 Allergy status to other drugs, medicaments and biological substances; Z87.440 Personal history of urinary (tract) infections; Z88.6 Allergy status to analgesic agent; Z85.41 Personal history of malignant neoplasm of cervix uteri; Z90.49 Acquired absence of other specified parts of digestive tract; Z87.891 Personal history of nicotine dependence; Z88.1 Allergy status to other antibiotic agents; Z91.018 Allergy to other foods; K66.8 Other specified disorders of peritoneum
CPT/HCPCS: 36415; 74176; 74240; 74240-26; 80048; 80053; 81001; 81025; 82150; 82306; 82607; 82728; 82746; 83690; 84425; 85025; 85027; 88305; 88307; 94762; 96361; 96374; 96375; 99285-25; A9270-GY; C9113; J0171; J0330; J0694; J1100; J1170; J1200; J1644; J2185; J2250; J2405; J2704; J2710; J2795; J2916; J3010; J3410; J3411; J3420; J7030; J7040; J7042; J7050; J7120; Q9967

== ENCOUNTER → 2018-08-13 | Day surgery (SDC) | payer BC, MEDICAID ==
[~2018-08-13] MED LIST: Acetaminophen 500 MG Tab PO ONE; Cyanocobalamin (Vitamin B12) 1,000 MCG/ML SDV IM ONE; Glycopyrrolate 0.2 MG/ML 2 ML SDV IVPUSH ONE; Ketorolac 60 MG/2 ML SDV IM ONE; Lactated Ringers 1,000 ML IV SCH; MVI, Adult with Vitamin K 10 ML, Thiamine 200 MG, Chromium/Copper/Mang/Zinc 1 ML in Lac... IV ONE; Midazolam 1 MG/ML 2 ML SDV ONE; Propofol 200 MG/20 ML SDV ONE; fentaNYL 100 MCG/2 ML SDV ONE
[2018-08-13 11:40] VITALS: BP 102/64
--- NOTE | 2018-08-21 15:37 | OR ---
DATE OF PROCEDURE: 08/13/2018 PREOPERATIVE DIAGNOSIS: Upper and mid abdominal pain. POSTOPERATIVE DIAGNOSIS: Upper and middle abdominal pain associated with normal upper gastrointestinal endoscopic examination, status post Miranda-en-Y gastric bypass. OPERATIVE PROCEDURE: Upper GI endoscopy with biopsies of gastric pouch for CLOtest. ANESTHESIA: IV sedation. INDICATION FOR PROCEDURE: A 33-year-old status post previous Miranda-en-Y gastric bypass in 2013, presenting with some postprandial abdominal pain. She presently is on omeprazole 40 mg a day along with Carafate. In the past, she has had a marginal ulcer. She does feel this pain is somewhat different in terms of being slightly longer after eating and more of a mid abdominal pain than epigastric pain. Plan is to proceed with upper GI endoscopy with biopsies and/or dilation as indicated. Potential risks including bleeding and perforation were discussed, and the patient wishes to proceed. DETAILS OF PROCEDURE: The patient was taken to the operating room, placed in left lateral decubitus position. IV sedation was administered, after which the upper GI endoscope was passed orally through the length of the esophagus and into the gastric pouch, from there through the gastrojejunostomy and roughly 20 cm into the Miranda limb. Overall findings on this examination were entirely normal. There were no areas of stricturing or mucosal inflammation and no bowel or other problems emanating into the Miranda limb. The scope was then withdrawn into the gastric pouch where biopsies were obtained for the CLOtest and minimal bleeding from the biopsy site was seen. Procedure was then concluded. The patient was taken to the recovery room in satisfactory condition. There were no evident complications. As discussed with the patient postoperatively as well as leading into this preoperatively, it appeared that she now likely has a partial small bowel obstruction based on clinical history and lack of any endoscopic abnormalities on the upper GI endoscopy. After discussion of the treatment options, she would like to proceed with diagnostic laparoscopy, laparotomy if necessary, and treatment of the probable partial small bowel obstruction this coming Monday. Rudolph Crump MD /[id number]
== END | disposition home or self-care (01) ==
LOC: JP.SDS 07:21
PROVIDERS: ATTEND Surgery
DX: R10.10 Upper abdominal pain, unspecified (principal); Z98.84 Bariatric surgery status; Z87.11 Personal history of peptic ulcer disease
CPT/HCPCS: 43239; 81025; 87081; A9270; J1885; J2250; J2704; J3010; J3411; J3420; J3490; J7120

== ENCOUNTER 2018-08-17 05:33 | Inpatient (IN) | payer BC, MEDICAID ==
[2018-08-17] MEDS ORDERED: Scopolamine 1.5 MG Transdermal Patch TOP SCH (05:45)
[2018-08-17] MEDS ORDERED: Celecoxib 200 MG Cap PO ONE (05:45)
[2018-08-17] MEDS ORDERED: Acetaminophen 500 MG Tab PO ONE (05:45)
[2018-08-17] MEDS ORDERED: Dextrose 5%-Lactated Ringers 1,000 ML IV SCH (06:00)
[2018-08-17] MEDS ORDERED: cefOXitin 2 GM Vial ONE (06:43)
[2018-08-17] MEDS ORDERED: Bupivacaine 0.5%/EPINEPHrine 1:200,000 50 ML MDV ONE (06:43)
[2018-08-17] MEDS ORDERED: Meropenem 500 MG SDV ONE (06:43)
[2018-08-17] MEDS ORDERED: Neostigmine Methylsulfate 1 MG/ML 5 ML Syringe ONE (07:09)
[2018-08-17] MEDS ORDERED: Rocuronium 50 MG/5 ML Vial ONE (07:09)
[2018-08-17] MEDS ORDERED: Dexamethasone 4 MG/ML SDV ONE (07:09)
[2018-08-17] MEDS ORDERED: fentaNYL 250 MCG/5 ML SDV ONE ×2 (07:09→07:52)
[2018-08-17] MEDS ORDERED: Propofol 200 MG/20 ML SDV ONE (07:09)
[2018-08-17] MEDS ORDERED: Glycopyrrolate 0.2 MG/ML 5 ML MDV ONE (07:09)
[2018-08-17] MEDS ORDERED: Ondansetron 4 MG/2 ML SDV ONE (07:09)
[2018-08-17] MEDS ORDERED: cefOXitin 2 GM in Sodium Chloride 0.9% 50 ML IV ONE (07:15)
[2018-08-17] MEDS ORDERED: Ketamine 50 MG in Sodium Chloride 0.9% 49.5 ML IV SCH (07:30)
[2018-08-17] MEDS ORDERED: Ropivacaine 32 ML, Dexamethasone 8 MG, EPINEPHrine 0.4 MG, Sodium Chloride 0.9% 45.6 ML NERVRT SCH ×4 (07:30)
[2018-08-17] MEDS ORDERED: Ketamine 500 MG/5 ML MDV IV SCH (07:30)
[2018-08-17] MEDS ORDERED: Lactated Ringers 1,000 ML ONE (08:25)
[2018-08-17] MEDS ORDERED: fentaNYL 100 MCG/2 ML SDV IVPUSH ONE ×2 (09:14→09:40)
[2018-08-17] MEDS ORDERED: hydrOXYzine HCl 100 MG/2 ML SDV IM ONE (09:14)
[2018-08-17] MEDS ORDERED: Ondansetron 4 MG/2 ML SDV IVPUSH ONE (09:21)
[2018-08-17] MEDS ORDERED: Naloxone 0.4 MG/ML SDV IV PRN (09:44)
[2018-08-17] MEDS: HYDROmorphone/Normal Saline 15 MG/30 ML PCA IV PRN (09:48)
[2018-08-17] MEDS: Dextrose 5%-Lactated Ringers 1,000 ML IV SCH (10:30)
[2018-08-17] MEDS: Acetaminophen Soln 650 MG/20.3 ML UD Cup PO SCH ×3 (11:56→23:11)
[2018-08-17] MEDS: Pantoprazole 40 MG Vial IVPUSH SCH (11:57)
[2018-08-17] MEDS ORDERED: diphenhydrAMINE 50 MG/ML SDV IVPUSH PRN (12:00)
[2018-08-17] MEDS ORDERED: hydrOXYzine HCl 100 MG/2 ML SDV IM PRN (12:00)
[2018-08-17] MEDS ORDERED: Labetalol 20 MG/4 ML Syringe IVPUSH PRN (12:00)
[2018-08-17] MEDS ORDERED: Metoclopramide 10 MG/2 ML SDV IVPUSH PRN (12:00)
[2018-08-17] MEDS: cefOXitin 2 GM in Sodium Chloride 0.9% 50 ML IV SCH ×2 (13:58→19:27)
[2018-08-17] MEDS: Sodium Ferric Gluconate Cmplex 250 MG in Sodium Chloride 0.9% 100 ML IV SCH (15:57)
[2018-08-17] MEDS: Heparin Sodium 5,000 Units/ML Vial SUBCUT SCH (17:20)
[2018-08-17] MEDS: MVI, Adult with Vitamin K 10 ML, Thiamine 100 MG, Chromium/Copper/Mang/Zinc 1 ML in Dex... IV SCH ×4 (17:53)
[2018-08-17] MEDS ORDERED: MVI, Adult with Vitamin K 10 ML, Thiamine 200 MG, Chromium/Copper/Mang/Zinc 1 ML in Dex... IV SCH ×4 (18:00)
[2018-08-17] MEDS: Ondansetron 4 MG/2 ML SDV IVPUSH PRN (18:02)
[2018-08-18] MEDS: Dextrose 5%-Lactated Ringers 1,000 ML IV SCH ×2 (00:19→07:27)
[2018-08-18] MEDS ORDERED: Iohexol 647 MG/ML 50 ML SDV PO PRN (02:03)
[2018-08-18] MEDS: cefOXitin 2 GM in Sodium Chloride 0.9% 50 ML IV SCH (02:13)
[2018-08-18] MEDS: Heparin Sodium 5,000 Units/ML Vial SUBCUT SCH ×2 (05:13→18:05)
[2018-08-18] MEDS: Acetaminophen Soln 650 MG/20.3 ML UD Cup PO SCH (05:13)
[2018-08-18] MEDS: Celecoxib 200 MG Cap PO SCH (07:26)
[2018-08-18] MEDS: HYDROmorphone/Normal Saline 15 MG/30 ML PCA IV PRN (07:37)
[2018-08-18] MEDS ORDERED: Dextrose 5%-Lactated Ringers 1,000 ML IV SCH (08:00)
[2018-08-18] MEDS: Levothyroxine 88 MCG Tab PO SCH (09:04)
[2018-08-18] MEDS: metFORMIN 500 MG Tab PO SCH (09:04)
[2018-08-18] MEDS: SCOPOLAMINE PATCH CHECK TOP SCH (09:05)
[2018-08-18] MEDS: Acetaminophen/oxyCODONE 325-5 MG Tab PO PRN ×4 (10:32→23:17)
[2018-08-18] MEDS: Pantoprazole 40 MG Vial IVPUSH SCH (14:05)
[2018-08-18] MEDS: Sodium Ferric Gluconate Cmplex 250 MG in Sodium Chloride 0.9% 100 ML IV SCH (15:39)
[2018-08-18] MEDS: Ondansetron 4 MG/2 ML SDV IVPUSH PRN (15:42)
[2018-08-18] MEDS: MVI, Adult with Vitamin K 10 ML, Thiamine 100 MG, Chromium/Copper/Mang/Zinc 1 ML in Dex... IV SCH ×4 (17:57)
[2018-08-19] MEDS: Acetaminophen/oxyCODONE 325-5 MG Tab PO PRN ×3 (03:46→11:55)
[2018-08-19] MEDS ORDERED: Magnesium Hydroxide 400 MG/5 ML Susp 30 ML Cup PO PRN (07:27)
[2018-08-19 07:50] VITALS: BP 110/66
[2018-08-19] MEDS: Levothyroxine 88 MCG Tab PO SCH (08:06)
[2018-08-19] MEDS: Celecoxib 200 MG Cap PO SCH (08:07)
[2018-08-19] MEDS: metFORMIN 500 MG Tab PO SCH (08:07)
[2018-08-19] MEDS: Heparin Sodium 5,000 Units/ML Vial SUBCUT SCH (08:08)
[2018-08-19] MEDS: SCOPOLAMINE PATCH CHECK TOP SCH (08:08)
[2018-08-19] MEDS ORDERED: Cyanocobalamin (Vitamin B12) 1,000 MCG/ML SDV IM ONE (09:00)
[2018-08-19] MEDS: Pantoprazole 40 MG Vial IVPUSH SCH (11:55)
--- NOTE | 2018-08-20 09:09 | CR ---
UGI wo KUB HISTORY: eval R -Y GBP FINDINGS: After administration of oral contrast, upright views were obtained. Post operative changes gastric bypass. Surgical drains in place. No evidence for leak. Contrast passes freely into proximal small bowel loops. There is some persistent postoperative intraperitoneal air IMPRESSION: No evidence for leak or obstruction.
--- NOTE | 2018-08-20 11:00 | DISCH ---
FINAL DIAGNOSES: 1. Partial small bowel obstruction associated with: a. Narrowing of jejunojejunostomy. b. Distortion of jejunojejunostomy by traction of mesentery and biliopancreatic limb stump. c. 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 2. Bariatric surgery status. 3. Iron-deficiency status. 4. Treated hypothyroidism. 5. Polycystic ovarian syndrome. PROCEDURES: This was done on 08/17/2018: 1. Diagnostic laparoscopy with lysis of adhesions and resection of the biliopancreatic limb stump of small bowel followed by open laparotomy. 2. Open laparotomy with: a. Small bowel resection. b. Separate small bowel stricturoplasty. SUMMARY: This is a 33-year-old female presenting with a picture of partial small bowel obstruction status post previous Miranda-en-Y gastric bypass. On admission, the patient underwent a diagnostic laparoscopy. Initially, the jejunojejunostomy was felt to be distorted by traction of the mesentery and the biliopancreatic limb stump and that area was resected. Further evaluation revealed both primary jejunojejunostomy and additional small bowel anastomosis somewhat proximal to that were both quite dilated. It was felt that it most likely would leave the patient symptomatic without some additional surgical management. Given this, a decision was made to do a limited open laparotomy and the 2 anastomoses then resected and a new jejunojejunostomy then constructed. This new anastomosis was somewhat distal to the old one, but not by more than roughly 20 cm, so there should not be a significant change in her obstructive pattern. Otherwise postoperatively, she is tolerating a step-3 diet, passing some flatus. No bowel movement as of yet. She will be discharged home later today with followup with Sulema Hebert at [facility] this coming 08/24/2018, and she will be continuing home medications plus Percocet 5/325 two tablets q.6 hours p.r.n. pain, #50; Flexeril 10 mg p.o. q.8 hours p.r.n. muscle spasm, #30 with refill x1; and she will be sent home with 2 doses of milk of magnesia to take as needed for bowel movements. While in the hospital, the patient did receive 2 doses of ferric gluconate 250 mg to replace her deficient iron status.
--- NOTE | 2018-08-20 15:15 | PN ---
DATE OF SERVICE: 08/18/2018 The patient has been afebrile with stable vital signs, tolerating the liquid diet satisfactory, and the upper GI x-ray looks good. We will Percocet today and she may be ready for discharge home tomorrow. Rudolph Crump MD /[id number]
--- NOTE | 2018-08-22 13:49 | OR ---
DATE OF PROCEDURE: 08/17/2018 PREOPERATIVE DIAGNOSIS: Partial small bowel obstruction. POSTOPERATIVE DIAGNOSES: Partial small bowel obstruction associated with; 1. Narrowing of Miranda limb at junction of jejunojejunostomy. 2. Distortion of jejunojejunostomy by traction of mesentery and biliopancreatic limb stump. 3. 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 OPERATIVE PROCEDURES: 1. Diagnostic laparoscopy with lysis of adhesions and resection of biliopancreatic limb stump of the small bowel (56786). 2. Conversion to open laparotomy with;. a. Small bowel resection (76076). b. Separate small bowel stricturoplasty (24147). c. Secondary enteroenterostomy to reestablish Miranda-en-Y anatomy (18576). ANESTHESIA: General. BUYER AGENT: Sulema Hebert PA-C, and IDANIA Ibarra1. INDICATION FOR PROCEDURE: This is a 33-year-old presenting status post Miranda-en-Y gastric bypass with picture of a partial small bowel obstruction. The plan is to proceed with a diagnostic laparoscopy, laparotomy if necessary, and lysis of adhesions and/or bowel resection as indicated. Potential risks of the procedure were reviewed, and the patient wishes to proceed. DETAILS OF PROCEDURE: The patient was taken to the operating room and placed in a supine position. After general endotracheal anesthesia was induced, the abdomen was prepped and draped. A Webber catheter had been inserted, which was removed at the conclusion of the procedure. In the left lower quadrant, a transverse incision was made, and the peritoneal cavity entered under direct vision with an Optiview trocar, inflated to 15 mmHg pressure with CO2. Laparoscope was then reinserted and no underlying trocar insertion site injuries were seen. Bilateral transversus abdominis plane blocks were then placed and, initially, a 5-mm trocar was placed in the right mid-abdomen and left mid-abdomen. The small bowel was then traced down from the gastrojejunostomy at the point where the jejunojejunostomy was encountered. It was noted to be quite distorted being posteriorly and leftward pulled, resulting in angulation of the jejunojejunostomy. This appeared to be related to traction of the mesentery on the biliopancreatic limb stump. Given this, the mesentery was divided with Harmonic scalpel and then the biliopancreatic limb stump excised with a PAULO lima load, more or less flush with the anastomosis. Thus, small bowel specimen was then delivered from the field. Further inspection at this point showed a persistent narrowing due to chronic angulation at the point where the Miranda limb joined the jejunojejunostomy. There was also quite a bit of patulousness in the second anastomosis, it had been performed previously just distal to that. Both of these appeared to be acting as probable areas of partial obstruction. It was felt, at this point, this complex of bowel would probably be best resected with creation of a fresh jejunojejunostomy, and this would be best accomplished by means of a limited open procedure. Given this, the trocars were removed and the peritoneal cavity deflated. A midline incision from the umbilicus to roughly five handsbreadth upward toward the xiphoid was made and carried down through the full-thickness abdominal wall, and the peritoneal cavity entered. The above findings were then reconfirmed. The original jejunojejunostomy was then divided away from the course of the Miranda limb, as it became the common limb, with a PAULO stapler. At the end of that, the biliopancreatic limb was also then resected to provide a more clean area for reanastomosis. Then, the bowel between the point of the Miranda limb just proximal to the previous anastomosis, to the point slightly beyond the second anastomosis were divided and then bowel being divided as indicated with two lima loads and underlying mesentery divided with mesenteric denzel. That segment of small bowel was then sent for histologic evaluation. At this point, the GI tract continuity was initially reconstructed with an anastomosis with what had been the distal Miranda limb to the proximal common limb, this with a [id number] enteroenterostomy with an internal firing of the 60 mm followed by a 30-mm PAULO stapler between those two limbs of bowel. Common opening was then closed transversely with a PAULO purple load, the angles anastomosed, and mesenteric defect approximated with some 3-0 Vicryl stitch. Miranda-en-Y anatomy was then accomplished with a second anastomosis, then between the small bowel roughly 20 cm distal to the Miranda limb with a [id number] enteroenterostomy with a 60-mm stapler internally and a transversely-oriented closure likewise with a 60-mm stapler, the angles of anastomosis and mesenteric defect were then reapproximated. In this case, mesenteric defect was approximated with a running 2-0 silk stitch and the angles of anastomosis were reinforced with some 3-0 Vicryl stitch. Regarding the small bowel, the patient related to a band of adhesions. She was also noted to have a chronically strictured-appearing area of small bowel. This was roughly 40 to 50 cm distal to the current jejunojejunostomy. At that point, the stricturoplasty was accomplished with flipping the bowel back over on itself, making an enterotomy on the tip, and two internal firings of the Endo-PAULO 60-mm stapler followed by a 30-mm stapler, and the common opening then closed transversely with the PAULO stapler. In this case, there was no mesenteric defect, and the angles of anastomosis were reinforced with some 3-0 Vicryl stitch. At this point, no further problems were noted. The abdomen was irrigated with antibiotic-containing saline solution. There was sufficient omentum to cover the incision to limit recurrent adhesion formation and midline fascia was then approximated with #2 Vicryl stitch, subcutaneous tissue with 4-0 Vicryl stitch, and the skin with denzel. Dressing was applied. The patient was taken to the recovery room in a satisfactory condition. Physician student assistant, Sulema Hebert, played an essential role in assisting in this case, helping to position the patient, retract structures as needed, as well as suturing and cutting sutures when indicated. Her presence improved patient safety and decreased the operative time. Rudolph Crump MD /[id number]
== END 2018-08-19 12:30 | disposition home or self-care (01) | DRG 223 ==
LOC: JP.SDSSCHI 05:33 → JP.SDS 05:33 → EDSTATUS 07:15 → JP.MS 09:15
PROVIDERS: ADMIT Surgery; ATTEND Surgery
PROC: 0DJD4ZZ Inspection of Lower Intestinal Tract, Percutaneous Endoscopic Approach (ICD-10-PCS; principal; 2018-08-17)
PROC: 0DBA0ZX Excision of Jejunum, Open Approach, Diagnostic (ICD-10-PCS; 2018-08-17)
PROC: 0DB84ZX Excision of Small Intestine, Percutaneous Endoscopic Approach, Diagnostic (ICD-10-PCS; 2018-08-17)
PROC: 3E0T3BZ Introduction of Anesthetic Agent into Peripheral Nerves and Plexi, Percutaneous Approach (ICD-10-PCS; 2018-08-17)
PROC: 0DNW0ZZ Release Peritoneum, Open Approach (ICD-10-PCS; 2018-08-17)
DX: K56.51 Intestinal adhesions [bands], with partial obstruction (principal); Z53.31 Laparoscopic surgical procedure converted to open procedure; K56.699 Other intestinal obstruction unspecified as to partial versus complete obstruction; E03.9 Hypothyroidism, unspecified; E28.2 Polycystic ovarian syndrome; E61.1 Iron deficiency; F41.9 Anxiety disorder, unspecified; F32.9 Major depressive disorder, single episode, unspecified; K21.9 Gastro-esophageal reflux disease without esophagitis; Z98.84 Bariatric surgery status; Z79.899 Other long term (current) drug therapy
CPT/HCPCS: 74240; 74240-26; 81025; 88305; 88307; 94762; A9270-GY; C9113; J0694; J1100; J1170; J1644; J2185; J2405; J2704; J2710; J2795; J2916; J3010; J3410; J3411; J3420; J3490; J7030; J7042; J7050; J7120; Q9967

== ENCOUNTER 2019-01-14 07:59 | Inpatient (IN) | payer OTHER, BC ==
[~2019-01-14 07:59] MED LIST changes: -Cyanocobalamin (Vitamin B12) 1,000 MCG/ML SDV IM ONE; +Dextrose 5%-Lactated Ringers 1,000 ML IV SCH; -Glycopyrrolate 0.2 MG/ML 2 ML SDV IVPUSH ONE; -Ketorolac 60 MG/2 ML SDV IM ONE; -Lactated Ringers 1,000 ML IV SCH; -MVI, Adult with Vitamin K 10 ML, Thiamine 200 MG, Chromium/Copper/Mang/Zinc 1 ML in Lac... IV ONE; -Midazolam 1 MG/ML 2 ML SDV ONE; -Propofol 200 MG/20 ML SDV ONE; +Scopolamine 1.5 MG Transdermal Patch TOP ONE; +ceFAZolin 2 GM in Premix Bag 1 BAG IV ONE; -fentaNYL 100 MCG/2 ML SDV ONE
[2019-01-14] MEDS ORDERED: Propofol 200 MG/20 ML SDV ONE (09:45)
[2019-01-14] MEDS ORDERED: Ondansetron 4 MG/2 ML SDV ONE (09:45)
[2019-01-14] MEDS ORDERED: Glycopyrrolate 0.2 MG/ML 5 ML MDV ONE (09:45)
[2019-01-14] MEDS ORDERED: Dexamethasone 4 MG/ML SDV ONE (09:45)
[2019-01-14] MEDS ORDERED: Ketamine 500 MG/5 ML MDV IV SCH (09:45)
[2019-01-14] MEDS ORDERED: Succinylcholine 200 MG/10 ML MDV ONE (09:45)
[2019-01-14] MEDS ORDERED: Rocuronium 50 MG/5 ML Vial ONE (09:45)
[2019-01-14] MEDS ORDERED: fentaNYL 250 MCG/5 ML SDV ONE (09:45)
[2019-01-14] MEDS ORDERED: Neostigmine Methylsulfate 1 MG/ML 5 ML Syringe ONE (09:45)
[2019-01-14] MEDS ORDERED: Bupivacaine 0.5%/EPINEPHrine 1:200,000 50 ML MDV ONE (09:46)
[2019-01-14] MEDS ORDERED: Meropenem 500 MG SDV ONE (10:51)
[2019-01-14] MEDS ORDERED: Lactated Ringers 1,000 ML ONE (11:49)
[2019-01-14] MEDS ORDERED: HYDROmorphone/Normal Saline 15 MG/30 ML PCA IV PRN (12:27)
[2019-01-14] MEDS ORDERED: Naloxone 0.4 MG/ML SDV IV PRN (12:41)
[2019-01-14] MEDS ORDERED: Ondansetron 4 MG/2 ML SDV IVPUSH ONE (12:44)
[2019-01-14] MEDS ORDERED: Ondansetron 4 MG/2 ML SDV IVPUSH PRN (13:44)
[2019-01-14] MEDS ORDERED: hydrOXYzine HCl 100 MG/2 ML SDV IM PRN (13:44)
[2019-01-14] MEDS ORDERED: Pantoprazole 40 MG Vial IV SCH (16:00)
[2019-01-14] MEDS: metFORMIN 500 MG Tab PO SCH (16:48)
[2019-01-14] MEDS: ceFAZolin 2 GM in Premix Bag 1 BAG IV SCH (18:00)
[2019-01-14] MEDS: Cyclobenzaprine 10 MG Tab PO PRN (20:08)
[2019-01-14] MEDS: Dextrose 5%-Lactated Ringers 1,000 ML IV SCH (21:12)
[2019-01-15] MEDS: ceFAZolin 2 GM in Premix Bag 1 BAG IV SCH ×2 (02:37→10:24)
[2019-01-15] MEDS: Dextrose 5%-Lactated Ringers 1,000 ML IV SCH (02:53)
[2019-01-15] MEDS: Cyclobenzaprine 10 MG Tab PO PRN ×3 (02:57→15:11)
[2019-01-15] MEDS: Acetaminophen/oxyCODONE 325-5 MG Tab PO PRN ×3 (06:48→15:11)
[2019-01-15] MEDS: metFORMIN 500 MG Tab PO SCH (07:16)
[2019-01-15] MEDS ORDERED: Levothyroxine 100 MCG, Levothyroxine 25 MCG PO SCH ×2 (07:30)
[2019-01-15] MEDS ORDERED: Celecoxib 200 MG Cap PO SCH (08:00)
[2019-01-15 11:47] VITALS: BP 111/78
--- NOTE | 2019-01-15 15:30 | DISCH ---
ADMISSION DIAGNOSES: 1. Incisional hernia. 2. Status post Miranda-en-Y gastric bypass surgery. 3. Unspecified surgical malabsorption. 4. Vitamin B12 deficiency. 5. Hypothyroidism. 6. Polycystic ovary disease. DISCHARGE DIAGNOSES: Laparoscopic repair of incarcerated incisional hernia and umbilical hernia with mesh and lysis of extensive abdominal adhesions. Date of surgery: 01/14/2019. Surgeon: Rudolph Crump MD. HISTORY: Mrati Dickson is a 33-year-old female with incisional hernia. After preoperative evaluation and discussion of possible risks and possible complications, she wishes to proceed with surgical procedure. HOSPITAL COURSE: Marti had her surgery on 01/14/2019. She was able to be discharged on postoperative day #1 without any complication. Pain was managed, activity was good, and vital signs remained stable. PHYSICAL EXAMINATION: GENERAL: Marti Dickson is a pleasant 33-year-old female. VITAL SIGNS: Height is 5 feet 2 inches, weight is 146 pounds. TPR 97.3, 66, 16, blood pressure 96/61. HEENT: Negative. NECK: Supple. HEART: Regular rate and rhythm. LUNGS: Clear. ABDOMEN: Incisions look good. Sutures intact. EXTREMITIES: Without peripheral edema. DISPOSITION: Discharged to home. CONDITION: Stable and improving. FOLLOWUP: Followup appointment with Rudolph Crump MD, on 01/23/2019 at 8:30 a.m. HOME MEDICATIONS: 1. Percocet 5/325 mg one tablet every 4 hours p.r.n. pain. 2. Celebrex 200 mg p.o. daily #14. 3. Flexeril 10 mg q.6 hours p.r.n. muscle spasms #30. She is to resume her home medications. 1. Vitamin C 500 mg orally. 2. Calcium citrate 500 mg oral daily. 3. Vitamin D3 10,000 International Units daily. 4. B12 1000 mcg IM every other week. 5. Vitamin B12 1000 mcg sublingual daily. 6. Ferrous sulfate 5 mg daily. 7. Levothyroxine 125 mcg oral daily. 8. Multivitamin two tablets oral twice daily. 9. Prilosec 40 mg oral daily. 10.Zofran ODT 4 mg every 4 hours p.r.n. nausea. 11.Papaya Enzyme one tablet oral daily as needed for dyspepsia. 12.Senna laxative 1 to 2 tablets oral daily. 13.Carafate 1 g oral before breakfast and bedtime. 14.Thiamine 100 mg p.o. daily. 15.Metformin 500 mg oral daily. DIET: Usual diet as tolerated. Drink 8 to 10 glasses of water a day. ACTIVITY: No lifting greater than 10 pounds for 6 weeks. Walk at least 6 times daily inside your home. Driving: Do not drive for 1 week and while on pain medication. Shower/bathing: May shower. Wound incision care, keep site clean and dry. Wear abdominal binder with a pressure dressing (rolled up Kerlix over hernia site) for 6 weeks.
--- NOTE | 2019-01-17 08:10 | OR ---
DATE OF PROCEDURE: 01/14/2019 SURGEON: Rudolph Crump MD PREOPERATIVE DIAGNOSIS: Incisional hernia. POSTOPERATIVE DIAGNOSES: 1. Incarcerated incisional hernia. 2. Incarcerated umbilical hernia. 3. Extensive intraabdominal adhesions. OPERATIVE PROCEDURES: 1. Diagnostic laparoscopy with lysis of extensive adhesions. 2. Repair of incarcerated incisional hernia with mesh (45366). 3. Repair of incarcerated umbilical hernia with mesh (82095). 4. Placement of Vicryl mesh to displace pelvic and abdominal wall from underlying viscera to limit recurrent adhesion formation (87776). ANESTHESIA: General. BUILDING OPERATOR: Sulema Hebert PA-C, and Ruperto Hutchinson MS1. INDICATION FOR PROCEDURE: This is a 33-year-old presenting with an incisional hernia located in the upper midline incision. Plan is to proceed with a repair of this using a laparoscopic approach, if possible, with a mesh technique. Potential risks including bleeding, infection, possible injury to underlying viscera, mesh becoming infected, or the hernia recurring were all reviewed, and the patient wishes to proceed. DETAILS OF PROCEDURE: The patient was taken to the operating room. After general endotracheal anesthesia was induced, a Webber catheter was inserted, and the abdomen was prepped and draped. In the left lateral lower abdomen, a transverse incision was made, and the peritoneal cavity was entered under direct vision with an Optiview trocar, inflated to 15 mmHg pressure with CO2. Laparoscope was then reinserted. No underlying trocar insertion site injuries were seen. Eventually, 4 additional 5 mm trocars were placed, 2 on the right and 2 on the left side of the abdomen, and initial exploration showed quite extensive adhesions. Fortunately, these were all omental adhesions. The patient was noted, in addition to incisional hernia, to have an umbilical hernia, and both of these contained incarcerated omentum. The omentum was divided away from the hernia sacs, and the falciform ligament was also taken down to allow more of a flat configuration of the mesh as it lay up against the abdominal wall. A Ventralight ST mesh with a balloon positioning system, measuring 22 x 25 cm was selected. Sutures were then placed on the polypropylene side of the mesh on each end of the long axis, and the mesh was then soaked in antibiotic-containing saline solution and placed in the intraperitoneal location, oriented such that the polypropylene side of the mesh faced the abdominal wall. Through stab wounds, the two ends of the mesh were pulled up by grasping the superiorly placed sutures, as well as the central balloon catheter. This appeared to orient the mesh with a wide margin away from the edges of the hernias. The balloon was inflated. Then using absorbable tacking screws, the mesh had three circumferential rows of fixation, initially around its outer circumference and then the other two progressively closer in toward the midline and edges of the hernia. At that point, the balloon was deflated, and the mesh was inspected and found to be clean. The patient was felt to be high risk for additional adhesion formation between the mesh, as well as the abdominal and pelvic wall surfaces in general. Given this, a 12-inch segment of Vicryl mesh was placed across the pelvis, up against the abdominal wall, including the area of the mesh placement. At that point, no further problems were noted. Trocars were removed. The fascia at the 12 mm site was closed with 0 Vicryl stitch, and the skin was closed with 4-0 Vicryl skin stitch. Bilateral transversus abdominis plane blocks had also been placed prior to closure, and the patient was taken to the recovery room in satisfactory condition. Physician bilingual executive assistant, Sulema Hebert, played an essential role in assisting in this case, helping to position the patient, retract structures as needed, as well as suturing and cutting sutures when indicated. Her presence improved patient's safety and decreased the operative time. Rudolph Crump MD /[id number]
== END 2019-01-15 16:25 | disposition home or self-care (01) | DRG 336 ==
LOC: JP.MS 07:59 → JP.SDS 07:59 → EDSTATUS 09:45 → JP.MS 12:20
PROVIDERS: ADMIT Surgery; ATTEND Surgery
PROC: 0WUF4JZ Supplement Abdominal Wall with Synthetic Substitute, Percutaneous Endoscopic Approach (ICD-10-PCS; principal; 2019-01-14)
PROC: 0DNU4ZZ Release Omentum, Percutaneous Endoscopic Approach (ICD-10-PCS; 2019-01-14)
PROC: 0WUF4JZ Supplement Abdominal Wall with Synthetic Substitute, Percutaneous Endoscopic Approach (ICD-10-PCS; 2019-01-14)
PROC: 3E0M45Z Introduction of Adhesion Barrier into Peritoneal Cavity, Percutaneous Endoscopic Approach (ICD-10-PCS; 2019-01-14)
DX: K43.0 Incisional hernia with obstruction, without gangrene (principal); K91.2 Postsurgical malabsorption, not elsewhere classified; K42.0 Umbilical hernia with obstruction, without gangrene; K66.0 Peritoneal adhesions (postprocedural) (postinfection); E03.9 Hypothyroidism, unspecified; Z98.84 Bariatric surgery status; Z98.0 Intestinal bypass and anastomosis status; Z87.891 Personal history of nicotine dependence; Z85.41 Personal history of malignant neoplasm of cervix uteri; D50.9 Iron deficiency anemia, unspecified; F32.9 Major depressive disorder, single episode, unspecified; M54.5 Low back pain; G89.29 Other chronic pain; H52.03 Hypermetropia, bilateral; Z90.49 Acquired absence of other specified parts of digestive tract; E53.8 Deficiency of other specified B group vitamins; E28.2 Polycystic ovarian syndrome
CPT/HCPCS: 81025; 94762; A9270-GY; C1781; C9113; J0171; J0330; J0690; J1100; J1170; J2020; J2185; J2405; J2704; J2710; J2795; J3010; J3490; J7042; J7050; J7120

== ENCOUNTER → 2022-11-24 | Day surgery (SDC) | payer MEDICAID ==
[~2022-11-24] MED LIST changes: -Acetaminophen 500 MG Tab PO ONE; +Cyanocobalamin (Vitamin B12) 1,000 MCG/ML SDV IM ONE; -Dextrose 5%-Lactated Ringers 1,000 ML IV SCH; +Glycopyrrolate 0.2 MG/ML 2 ML SDV IVPUSH ONE; +Lactated Ringers 1,000 ML IV ONE; +MVI, Adult with Vitamin K 10 ML, Zinc/Copper/Manganese/Selenium 1 ML, Thiamine 200 MG i... IV ONE; +Midazolam 1 MG/ML 2 ML SDV ONE; +Propofol 200 MG/20 ML SDV ONE; -Scopolamine 1.5 MG Transdermal Patch TOP ONE; -ceFAZolin 2 GM in Premix Bag 1 BAG IV ONE; +fentaNYL 50 MCG/ML SDV ONE
[2022-11-24 08:18] VITALS: PULSE 76
[2022-11-24 08:39] VITALS: BP 107/75
== END ==
LOC: JP.SDS 06:03
PROVIDERS: ATTEND Surgery
DX: K21.9 Gastro-esophageal reflux disease without esophagitis (principal); E66.9 Obesity, unspecified; K56.609 Unspecified intestinal obstruction, unspecified as to partial versus complete obstruction; Z98.84 Bariatric surgery status; Z68.29 Body mass index [BMI] 29.0-29.9, adult
CPT/HCPCS: 43235; 81025; J2250; J2704; J3010; J3411; J3420; J3490; J7120